=== PATIENT | female | born 1940 | race American Indian/Alaskan Native ===

== ENCOUNTER 2018-12-28 10:22 | Inpatient (IN) | payer OTHER ==
--- NOTE | 2018-12-28 12:10 | PDOC ---
History of Present Illness - General Chief Complaint: Rectal Bleed Stated Complaint: BLOOD IN THE STOOL Time Seen by Provider: 12/28/18 11:43 - History of Present Illness Initial Comments: 12/28/18 12:10 Ms. Hdz is a 78 yo female w/ pmh of HTN, HLD, hypothyroidism, rheumatoid arthritis, and polycythemia vera who presents for evaluation of 1 time history of blood in stool. She reports this occurred yesterday and was liquid blood without stool in it. She otherwise feels well and denies any other complaints however this worried her sufficiently to come in for evaluation. Last colonoscopy was approximately [address] Peoples and normal. The patient denies chest pain, shortness of breath, headache and dizziness. Denies fever, chills, nausea, vomit, diarrhea and constipation. Denies dysuria, frequency, urgency and hematuria. Past History - Past Medical History Allergies/Adverse Reactions: Allergies Allergy/AdvReac Type Severity Reaction Status Date / Time No Known Drug Allergies Allergy Verified 12/28/18 12:48 POLLEN Allergy Uncoded 12/28/18 10:29 RAGWEED Allergy Uncoded 12/28/18 10:29 Home Medications: Ambulatory Orders Amlodipine Besylate [Norvasc -] 10 mg PO DAILY 11/06/11 Aspirin, Enteric Coated [Ecotrin] 325 mg PO DAILY 11/06/11 Atorvastatin Ca [Lipitor] 10 mg PO HS 11/06/11 Caltrate 600 600 mg PO BID 11/06/11 Hydroxyurea [Hydrea 500Mg Capsule -] 1 mg PO UTDICT 11/06/11 Hydroxyurea [Hydrea 500Mg Capsule -] 2 mg PO UTDICT 11/06/11 Lisinopril [Zestril] 1 mg PO DAILY 11/06/11 Metformin HCl [Glucophage] 500 mg PO BID 11/06/11 Raloxifene HCl [Evista (Nf) -] 60 mg PO DAILY 11/06/11 Synthroid 75 mcg PO DAILY 11/06/11 Vitamin D 1,000 iu PO DAILY 11/06/11 Anemia: No Asthma: No Cancer: No Cardiac Disorders: No CVA: No COPD: No CHF: No Dementia: No Diabetes: Yes GI Disorders: No Disorders: No HTN: Yes Hypercholesterolemia: Yes Liver Disease: No Seizures: No Thyroid Disease: Yes (HYPOTHYROIDISM) - Surgical History Appendectomy: Yes Cholecystectomy: No Orthopedic Surgery: No - Immunization History Immunization Up to Date: Yes - Suicide/Smoking/Psychosocial Hx Smoking History: Never smoked Hx Alcohol Use: No Drug/Substance Use Hx: No Substance Use Type: None Hx Substance Use Treatment: No Review of Systems - Review of Systems Comments:: 12/28/18 12:14 GENERAL/CONSTITUTIONAL: No fever or chills. No weakness. HEAD, EYES, EARS, NOSE AND THROAT: No change in vision. No ear pain or discharge. No sore throat. CARDIOVASCULAR: No chest pain or shortness of breath RESPIRATORY: No cough, wheezing, or hemoptysis. GASTROINTESTINAL: +Blood per rectum as described. No nausea, vomiting, diarrhea or constipation. GENITOURINARY: No dysuria, frequency, or change in urination. MUSCULOSKELETAL: No joint or muscle swelling or pain. No neck or back pain. SKIN: No rash NEUROLOGIC: No headache, vertigo, loss of consciousness, or change in strength/ sensation. ENDOCRINE: No increased thirst. No abnormal weight change HEMATOLOGIC/LYMPHATIC: No anemia, easy bleeding, or history of blood clots. ALLERGIC/IMMUNOLOGIC: No hives or skin allergy. *Physical Exam - Vital Signs Last Vital Signs Temp Pulse Resp BP Pulse Ox 98.1 F 106 H 16 145/77 99 12/28/18 10:29 12/28/18 10:29 12/28/18 10:29 12/28/18 10:29 12/28/18 10:29 - Physical Exam Comments: 12/28/18 12:14 GENERAL: +Patient pale appearing. Awake, alert, and fully oriented, in no acute distress HEAD: No signs of trauma, normocephalic, atraumatic EYES: PERRLA, EOMI, sclera anicteric, conjunctiva clear ENT: Auricles normal inspection, hearing grossly normal, nares patent, oropharynx clear without exudates. Moist mucosa NECK: Normal ROM, supple, no lymphadenopathy, JVD, or masses LUNGS: No distress, speaks full sentences, clear to auscultation bilaterally HEART: Regular rate and rhythm, normal S1 and S2, no murmurs, rubs or gallops, peripheral pulses normal and equal bilaterally. ABDOMEN: Soft, nontender, normoactive bowel sounds. No guarding, no rebound. No masses EXTREMITIES: Normal inspection, Normal range of motion, no edema. No clubbing or cyanosis. NEUROLOGICAL: Cranial nerves II through XII grossly intact. Normal speech, normal gait, no focal sensorimotor deficits SKIN: Warm, Dry, normal turgor, no rashes or lesions noted. RECTAL: +Rosibel blood noted on glove. No pain, fissures, or hemorrhoids noted. Moderate Sedation - Procedure Monitoring Vital Signs: Procedure Monitoring Vital Signs Temperature 98.1 F 12/28/18 10:29 Pulse Rate 106 H 12/28/18 10:29 Respiratory Rate 16 12/28/18 10:29 Blood Pressure 145/77 12/28/18 10:29 O2 Sat by Pulse Oximetry (%) 99 12/28/18 10:29 ED Treatment Course - LABORATORY CBC & Chemistry Diagram: 12/28/18 12:50 12/28/18 12:50 Medical Decision Making - Medical Decision Making 12/28/18 12:49 Ms. Hdz is a 78 yo female w/ pmh as described who presents for evaluation of symptoms concerning for rectal bleed vs. hemorrhoid vs. GI bleed. Patient evaluation started accordingly. 12/28/18 13:47 Patient workup concerning for rosibel blood noted on glove. Labs concerning for positive SFOB as below. Will admit patient for further GI evaluation. Paging PCP for admission. 12/28/18 14:13 Patient admitted for further GI evaluation. Laboratory Results - last 24 hr 12/28/18 12/28/18 12/28/18 12:41 12:41 12:50 WBC 8.8 RBC 3.43 L Hgb 13.0 Hct 37.5 D MCV 109.3 H MCH 38.0 H D MCHC 34.8 RDW 18.3 H Plt Count 464 H MPV 7.6 Absolute Neuts (auto) 7.3 Neutrophils % 82.8 Lymphocytes % 7.5 L D Monocytes % 8.0 Eosinophils % 1.0 Basophils % 0.7 Nucleated RBC % 0 Retic Count Sodium Potassium Chloride Carbon Dioxide Anion Gap BUN Creatinine Creat Clearance w eGFR Random Glucose Calcium Total Bilirubin AST ALT Alkaline Phosphatase Total Protein Albumin Urine Color Yellow Urine Appearance Clear Urine pH 5.0 Ur Specific [place] 1.023 Urine Protein Negative Urine Glucose (UA) 3+ Urine Ketones Negative Urine Blood 2+ Urine Nitrite Negative Urine Bilirubin Negative Urine Urobilinogen 0.2 Ur Leukocyte Esterase Negative Urine WBC (Auto) 1 Urine RBC (Auto) 7 Urine Casts (Auto) 0 U Epithel Cells (Auto) 0.3 Urine Bacteria (Auto) 1.512 Stool Occult Blood Positive Blood Type Antibody Screen 12/28/18 12/28/18 12/28/18 12:50 12:50 12:50 WBC RBC Hgb Hct MCV MCH MCHC RDW Plt Count MPV Absolute Neuts (auto) Neutrophils % Lymphocytes % Monocytes % Eosinophils % Basophils % Nucleated RBC % Retic Count 1.93 H Sodium 138 Potassium 4.7 Chloride 106 Carbon Dioxide 27 Anion Gap 4 L BUN 20 H Creatinine 1.1 Creat Clearance w eGFR 47.91 Random Glucose 188 H Calcium 9.2 Total Bilirubin 0.6 AST 27 ALT 16 Alkaline Phosphatase 78 Total Protein 6.4 Albumin 3.3 L Urine Color Urine Appearance Urine pH Ur Specific [place] Urine Protein Urine Glucose (UA) Urine Ketones Urine Blood Urine Nitrite Urine Bilirubin Urine Urobilinogen Ur Leukocyte Esterase Urine WBC (Auto) Urine RBC (Auto) Urine Casts (Auto) U Epithel Cells (Auto) Urine Bacteria (Auto) Stool Occult Blood Blood Type A POSITIVE Antibody Screen Negative *DC/Admit/Observation/Transfer Diagnosis at time of Disposition: GI bleed Qualifiers: GI bleed type/associated pathology: unspecified gastrointestinal hemorrhage type Qualified Code(s): K92.2 - Gastrointestinal hemorrhage, unspecified - Discharge Dispostion Decision to Admit order: Yes - Referrals - Patient Instructions - Post Discharge Activity
[2018-12-28] MEDS ORDERED: SODIUM CHLORIDE 1,000 ML IV STA (12:46)
[2018-12-28] MEDS ORDERED: PANTOPRAZOLE SODIUM 40 MG VIAL IVPUSH ONE (12:46)
[2018-12-28 12:55] LABS: EPI CELLS 0.3 /HPF (0-5); URINE APPEARANCE CLEAR; URINE BACTERIA 1.512 /hpf (NEGATIVE); URINE BILIRUBIN NEGATIVE (<2.0 mg/dL); URINE CASTS 0 /hpf (0-8); URINE COLOR YELLOW; URINE GLUCOSE (UA) 3+ (NEGATIVE); URINE KETONE NEGATIVE (NEGATIVE); URINE LEUK ESTERASE NEGATIVE (NEGATIVE); URINE NITRITE NEGATIVE (NEGATIVE); URINE PROTEIN NEGATIVE (NEGATIVE); URINE RBC 7 /hpf (0-4); URINE UROBILINOGEN 0.2 mg/dL (0.2-1.0); URINE WBC 1 /hpf (0-5)
[2018-12-28 13:03] LABS: BASO % 0.7 % (0-2.0); HEMATOCRIT 37.5 % (32.4-45.2); LYMPH % 7.5 % (8-40); MCHC 34.8 g/dl (32.0-36.0); MEAN CELL VOLUME 109.3 fl (80-96); MEAN PLT VOLUME 7.6 fl (7.5-11.1); NEUT % 82.8 % (42.8-82.8); PLATELET COUNT 464 K/MM3 (134-434); RBC 3.43 M/mm3 (3.60-5.2); RDW 18.3 % (11.6-15.6); WHITE BLOOD COUNT 8.8 K/mm3 (4.0-10.0)
[2018-12-28] MEDS ORDERED: PANTOPRAZOLE SODIUM 40 MG VIAL ONE (13:18)
--- NOTE | 2018-12-28 13:19 | PDOC ---
Attending Attestation - Resident Resident Name: Enrrique Hayes - ED Attending Attestation I have performed the following: I have examined & evaluated the patient, The case was reviewed & discussed with the resident, I agree w/resident's findings & plan, Exceptions are as noted - Medical Decision Making 12/28/18 13:19 A portion of this note was documented by scribe services under my direction. I have reviewed the details of the note, within reason, and agree with the documentation with the following case summary and management plan written by me. Patient treated in the ED. Nursing notes are reviewed and incorporated into the medical decision-making. Vital signs reviewed. Peripheral IV access obtained by the nurse, laboratory studies are drawn and sent, reviewed and interpreted by myself. Vital Signs Temp Pulse Resp BP Pulse Ox 98.1 F 106 H 16 145/77 99 12/28/18 10:29 12/28/18 10:29 12/28/18 10:29 12/28/18 10:29 12/28/18 10:29 78-year-old female patient with history of hypertension, hyperlipidemia, hypothyroidism, rheumatoid arthritis, polycythemia vera presents with blood per rectum. Patient reported that she had an episode of straight blood per rectum. Denies abdominal pain, fevers, recent travels, back foods. Patient reports that she had a colonoscopy last year by Dr. Peoples which was reportedly negative. Given that the patient is having rectal bleeding, we will need to further investigate. Patient is on coronary disease with stent, at risk for further GI bleed. The patient should be admitted for further evaluation including possible colonoscopy. Consult GI. Admit. Transfuse when necessary if hemoglobin is less than 8. 12/28/18 13:47 CBC, BMP 12/28/18 12:50 12/28/18 12:50 CMP Sodium 138 mmol/L (136-145) 12/28/18 12:50 Potassium 4.7 mmol/L (3.5-5.1) 12/28/18 12:50 Chloride 106 mmol/L (98-107) 12/28/18 12:50 Carbon Dioxide 27 mmol/L (21-32) 12/28/18 12:50 Anion Gap 4 MMOL/L (8-16) L 12/28/18 12:50 BUN 20 mg/dL (7-18) H 12/28/18 12:50 Creatinine 1.1 mg/dL (0.55-1.3) 12/28/18 12:50 Creat Clearance w eGFR 47.91 (>60) 12/28/18 12:50 Random Glucose 188 mg/dL (74-106) H 12/28/18 12:50 Calcium 9.2 mg/dL (8.5-10.1) 12/28/18 12:50 Total Bilirubin 0.6 mg/dL (0.2-1) 12/28/18 12:50 AST 27 U/L (15-37) 12/28/18 12:50 ALT 16 U/L (13-61) 12/28/18 12:50 Alkaline Phosphatase 78 U/L (45-117) 12/28/18 12:50 Total Protein 6.4 g/dl (6.4-8.2) 12/28/18 12:50 Albumin 3.3 g/dl (3.4-5.0) L 12/28/18 12:50 Urine Test Results Urine Color Yellow 12/28/18 12:41 Urine Appearance Clear 12/28/18 12:41 Urine pH 5.0 (5.0-8.0) 12/28/18 12:41 Ur Specific [place] 1.023 (1.010-1.035) 12/28/18 12:41 Urine Protein Negative (NEGATIVE) 12/28/18 12:41 Urine Glucose (UA) 3+ (NEGATIVE) 12/28/18 12:41 Urine Ketones Negative (NEGATIVE) 12/28/18 12:41 Urine Blood 2+ (NEGATIVE) 12/28/18 12:41 Urine Nitrite Negative (NEGATIVE) 12/28/18 12:41 Urine Bilirubin Negative (<2.0 mg/dL) 12/28/18 12:41 Ur Leukocyte Esterase Negative (NEGATIVE) 12/28/18 12:41 <Dheeraj Jc - Last Filed: 12/28/18 13:47> - HPI HPI: 12/28/18 13:35 The patient is a 78-year-old female with a past medical history significant for CAD s/p Stent (on Plavix) RA, HTN, NIDDM, Hypothyroidism, HLD, and polycythemia vera presents to the emergency department with rectal bleeding. The patient presents after a single episode of rectal bleeding, liquid blood, denies diarrhea or stool. Denies abdominal pain. Denies fever, chills, chest pain, Shortness of breath, urinary symptoms. The patient reports her last colonoscopy was about a year ago, that was unremarkable with Dr. Peoples. Allergies: NKA Social history: Denies the use of tobacco, alcohol or drugs. Surgical history: Appendectomy. PCP: Dr. Christiano Mayo. - Physicial Exam PE: 12/28/18 13:35 GENERAL: Awake, alert, and fully oriented, in no acute distress HEAD: No signs of trauma EYES: PERRLA, EOMI, sclera anicteric, conjunctiva clear ENT: Auricles normal inspection, hearing grossly normal, nares patent. Moist mucosa NECK: Normal ROM, supple, no lymphadenopathy, JVD, or masses ABDOMEN: Soft, nontender. Rectal Exam as per ER resident. EXTREMITIES: Normal range of motion, no edema. No clubbing or cyanosis. No cords, erythema, or tenderness NEUROLOGICAL: Cranial nerves II through XII grossly intact. Normal speech. SKIN: Warm, Dry, normal turgor, no rashes or lesions noted. - Medical Decision Making 12/28/18 13:35 Documentation prepared by Sunitha Philippe, acting as medical representative for Dheeraj Jc MD. 12/28/18 13:50 Phone Call: Call placed to Dr. Mayo, spoke with the service, waiting for a call back from ANSHUL Bales. 12/28/18 14:01 Case discussed with ANSHUL Bales. <Sunitha Philippe - Last Filed: 12/28/18 15:01>
[2018-12-28 13:25] LABS: ALBUMIN 3.3 g/dl (3.4-5.0); ALK PHOS 78 U/L (45-117); ANION GAP 4 MMOL/L (8-16); BILIRUBIN,TOTAL 0.6 mg/dL (0.2-1); BLOOD UREA NITROGEN 20 mg/dL (7-18); CALCIUM 9.2 mg/dL (8.5-10.1); CHLORIDE 106 mmol/L (98-107); CO2 27 mmol/L (21-32); CREATININE 1.1 mg/dL (0.55-1.3); GLUCOSE,RANDOM 188 mg/dL (74-106); POTASSIUM 4.7 mmol/L (3.5-5.1); SGOT/AST 27 U/L (15-37); SGPT/ALT 16 U/L (13-61); SODIUM 138 mmol/L (136-145); TOT PROT 6.4 g/dl (6.4-8.2)
[2018-12-28 14:58] LABS: INR 1.11 (0.82-1.09); PROTHROMBIN TIME (PATIENT) 12.4 SEC (10.2-13.0)
[2018-12-28 15:38] LABS: ANISOCYTOSIS 1+; MACROCYTOSIS 1+; OVALOCYTE 1+; PLATELET ESTIMATE NORMAL
[2018-12-28 16:02] VITALS: BMI 22.2
[2018-12-28] MEDS ORDERED: SODIUM CHLORIDE 500 ML IV STA (16:13)
--- NOTE | 2018-12-28 16:28 | HP ---
Admitting History and Physical - Primary Care Physician PCP: Randee Mayo - Admission Chief Complaint: Rectal bleeding History of Present Illness: Patient is a 78 y/o female with past medical history of HTN, HLD, Hyypothyroidism, RA, Polycythemia Vera, DM, recent cardiac stent placement as per patient. Patient presented to ER after experiencing bloody diarrhea x 2 episodes this morning. Patient denied abdominal pain, dizziness, palpitations when bloody diarrhea began. In ER labs noted with Hg 13, BP 145/77, Stool OB positive. While on unit patient had episode of rectal bleeding with clots noted in bed bosch and with BP 70/35 and patient had near syncopal episode but no LOC as per RN. Received NS 500cc bolus STAT and BP increase to 114/55. On exam patient is alert and oriented, denies chest pain, palpitation, dizziness. History Source: Patient Limitations to Obtaining History: No Limitations - Past Medical History Cardiovascular: Yes: CAD (stent placement), HTN, Hyperlipdemia Gastrointestinal: Yes: GI Bleed, Other (rectal bleeding) ...: No Heme/Onc: Yes: Other (polycythemia vera) Rheumatology: Yes: Rheumatoid Arthritis Endocrine: Yes: Diabetes Mellitus, Hypothyroidism - Past Surgical History Past Surgical History: Yes: Colonoscopy - Smoking History Smoking history: Never smoked Have you smoked in the past 12 months: No - Alcohol/Substance Use Hx Alcohol Use: No - Social History Usual Living Arrangement: Yes: Alone ADL: Independent Home Medications - Allergies Allergies/Adverse Reactions: Allergies Allergy/AdvReac Type Severity Reaction Status Date / Time No Known Drug Allergies Allergy Verified 12/28/18 12:48 POLLEN Allergy Uncoded 12/28/18 10:29 RAGWEED Allergy Uncoded 12/28/18 10:29 - Home Medications Home Medications: Ambulatory Orders Amlodipine Besylate 10 mg PO DAILY 12/28/18 Ascorbate Calcium [Vitamin C] 500 mg PO DAILY 12/28/18 Aspirin 81 mg PO DAILY 12/28/18 Atorvastatin Calcium [Lipitor] 10 mg PO HS 12/28/18 Clopidogrel Bisulfate [Plavix] 75 mg PO DAILY 12/28/18 Dexlansoprazole [Dexilant] 60 mg PO DAILY 12/28/18 Empagliflozin [Jardiance] 25 mg PO DAILY 12/28/18 Folic Acid 1 mg PO DAILY 12/28/18 Glimepiride 1 mg PO 12/28/18 Hydroxyurea 500 mg PO DAILY 12/28/18 Levothyroxine [Synthroid -] 75 mcg PO DAILY 12/28/18 Losartan Potassium 25 mg PO DAILY 12/28/18 Lubiprostone [Amitiza] 8 mcg PO DAILY 12/28/18 Magnesium Oxide [Magnesium] 500 mg PO DAILY 12/28/18 Metformin HCl [Glucophage] 500 mg PO DAILY 12/28/18 Montelukast Sodium [Singulair] 10 mg PO DAILY 12/28/18 Prednisone 5 mg PO DAILY 12/28/18 Varicella-Zoster Ge Vac,2 of 2 [Shingrix Ge Antigen Component] 50 mcg IM ASDIR 12/28/18 Vitamin D - 1,000 units PO DAILY 12/28/18 Review of Systems - Review of Systems Constitutional: reports: No Symptoms Eyes: reports: No Symptoms HENT: reports: No Symptoms Neck: reports: No Symptoms Cardiovascular: reports: No Symptoms Respiratory: reports: No Symptoms Gastrointestinal: reports: Abdominal Pain, Rectal Bleeding Genitourinary: reports: No Symptoms Breasts: reports: No Symptoms Reported Musculoskeletal: reports: No Symptoms Integumentary: reports: No Symptoms Neurological: reports: No Symptoms Endocrine: reports: No Symptoms Hematology/Lymphatic: reports: No Symptoms Psychiatric: reports: No Symptoms Physical Examination Vital Signs: Vital Signs Temperature 98.0 F 12/28/18 14:34 Pulse Rate 74 12/28/18 14:34 Respiratory Rate 16 12/28/18 14:34 Blood Pressure 126/61 12/28/18 14:34 O2 Sat by Pulse Oximetry (%) 97 12/28/18 14:34 Constitutional: Yes: No Distress, Calm Eyes: Yes: Conjunctiva Clear HENT: Yes: Atraumatic Neck: Yes: Supple Cardiovascular: Yes: Regular Rate and Rhythm Respiratory: Yes: Regular, CTA Bilaterally Gastrointestinal: Yes: Normal Bowel Sounds, Soft, Tenderness (LLQ) ...Rectal Exam: Yes: Guaiac Positive Musculoskeletal: Yes: Muscle Weakness Extremities: Yes: WNL Edema: No Neurological: Yes: Alert, Oriented Psychiatric: Yes: Alert, Oriented Labs: CBC, BMP 12/28/18 12:50 12/28/18 12:50 Problem List - Problems (1) HLD (hyperlipidemia) Assessment/Plan: -continue lipitor Code(s): E78.5 - HYPERLIPIDEMIA, UNSPECIFIED (2) CAD (coronary artery disease) Assessment/Plan: -continue with ASA -hold plavix until stop actively bleeding Code(s): I25.10 - ATHSCL HEART DISEASE OF [place] CORONARY ARTERY W/O ANG PCTRS (3) Diabetes mellitus Assessment/Plan: -BGM ACHS -ISS -holding metformin for 2 days due to Abdomen CTA -HgA1c Code(s): E11.9 - TYPE 2 DIABETES MELLITUS WITHOUT COMPLICATIONS (4) GI bleed Assessment/Plan: -GI and Surgery consult placed -pending CTA of abdomen -pantoprazole BID -IV hydration -monitor Hg daily -ICU consult--due to actively bleeding -NPO Code(s): K92.2 - GASTROINTESTINAL HEMORRHAGE, UNSPECIFIED Qualifiers: GI bleed type/associated pathology: unspecified gastrointestinal hemorrhage type Qualified Code(s): K92.2 - Gastrointestinal hemorrhage, unspecified (5) Syncopal episodes Assessment/Plan: -cardiology consult -pending ICU consult Code(s): R55 - SYNCOPE AND COLLAPSE (6) Hypotension Assessment/Plan: -NS 500cc bolus -NS at 100cc/hr for maintainance -cardiology consult Code(s): I95.9 - HYPOTENSION, UNSPECIFIED Assessment/Plan see problem list dvt ppx
--- NOTE | 2018-12-28 16:30 | CON.GI ---
Consult Consult Specialty:: Gastroenterology ( covering Dr Peoples) Referred by:: Lynda Guan NP Reason for Consultation:: GI bleed - History of Present Illness Chief Complaint: Hematochezia x 4 episodes History of Present Illness: 78F developed rectal bleeding at 7AM and has had 4 episodes today. She has mild crampy lower abdominal pain. She had a near syncopal episode after the last the last episode when she became hypotensive to 70. She had a colonoscopy with Dr Peoples about a year ago which she believes was normal. She has been taking Plavix since a coronary stent was placed in 08/26 at [facility]. She denies ever having had an DE, CHF or previous GI bleeding. She is followed by Dr Lepe for polycythemia vera and has required phlebotomy only once. - History Source History Provided By: Patient Limitations to Obtaining History: No Limitations - Past Medical History Cardio/Vascular: Yes: CAD (coronary stenting 10/26), HTN, Hyperlipdemia Renal/: Yes: Renal Inusuff ...: No Endocrine: Yes: Diabetes Mellitus, Hypothyroidism - Past Surgical History Past Surgical History: Yes: Appendectomy, Breast Biopsy (bilateral for benign disease), Cataract Removal (bilateral ), Colonoscopy, Hysterectomy ( laparoscopic for fibroids) Additional Surgical History: Partial thyroidectomy for benign disease - Alcohol/Substance Use Hx Alcohol Use: Yes (social) - Smoking History Smoking history: Never smoked Have you smoked in the past 12 months: No - Social History Usual Living Arrangement: Alone ADL: Independent Occupation: electronics asembly Place of : Other ([place]) History of Recent Travel: No Home Medications - Allergies Allergies/Adverse Reactions: Allergies Allergy/AdvReac Type Severity Reaction Status Date / Time No Known Drug Allergies Allergy Verified 12/28/18 12:48 POLLEN Allergy Uncoded 12/28/18 10:29 RAGWEED Allergy Uncoded 12/28/18 10:29 - Home Medications Home Medications: Ambulatory Orders Amlodipine Besylate 10 mg PO DAILY 12/28/18 Ascorbate Calcium [Vitamin C] 500 mg PO DAILY 12/28/18 Aspirin 81 mg PO DAILY 12/28/18 Atorvastatin Calcium [Lipitor] 10 mg PO HS 12/28/18 Clopidogrel Bisulfate [Plavix] 75 mg PO DAILY 12/28/18 Dexlansoprazole [Dexilant] 60 mg PO DAILY 12/28/18 Empagliflozin [Jardiance] 25 mg PO DAILY 12/28/18 Folic Acid 1 mg PO DAILY 12/28/18 Glimepiride 1 mg PO 12/28/18 Hydroxyurea 500 mg PO DAILY 12/28/18 Levothyroxine [Synthroid -] 75 mcg PO DAILY 12/28/18 Losartan Potassium 25 mg PO DAILY 12/28/18 Lubiprostone [Amitiza] 8 mcg PO DAILY 12/28/18 Magnesium Oxide [Magnesium] 500 mg PO DAILY 12/28/18 Metformin HCl [Glucophage] 500 mg PO DAILY 12/28/18 Montelukast Sodium [Singulair] 10 mg PO DAILY 12/28/18 Prednisone 5 mg PO DAILY 12/28/18 Varicella-Zoster Ge Vac,2 of 2 [Shingrix Ge Antigen Component] 50 mcg IM ASDIR 12/28/18 Vitamin D - 1,000 units PO DAILY 12/28/18 Family Disease History - Family Disease History Family Disease History: Other: Father ( 55 of ulcer ) Review of Systems - Review of Systems Constitutional: reports: No Symptoms Eyes: reports: No Symptoms HENT: reports: No Symptoms Neck: reports: No Symptoms Cardiovascular: reports: No Symptoms Respiratory: reports: No Symptoms Gastrointestinal: reports: No Symptoms Neurological: reports: No Symptoms Physical Exam-GI Vital Signs: Vital Signs Temperature 98.0 F 12/28/18 14:34 Pulse Rate 74 12/28/18 14:34 Respiratory Rate 16 12/28/18 14:34 Blood Pressure 126/61 12/28/18 14:34 O2 Sat by Pulse Oximetry (%) 97 12/28/18 14:34 CBC,CMP WBC 8.8 K/mm3 (4.0-10.0) 12/28/18 12:50 RBC 3.43 M/mm3 (3.60-5.2) L 12/28/18 12:50 Hgb 13.0 GM/dL (10.7-15.3) 12/28/18 12:50 Hct 37.5 % (32.4-45.2) D 12/28/18 12:50 MCV 109.3 fl (80-96) H 12/28/18 12:50 MCH 38.0 pg (25.7-33.7) H D 12/28/18 12:50 MCHC 34.8 g/dl (32.0-36.0) 12/28/18 12:50 RDW 18.3 % (11.6-15.6) H 12/28/18 12:50 Plt Count 464 K/MM3 (134-434) H 12/28/18 12:50 MPV 7.6 fl (7.5-11.1) 12/28/18 12:50 Absolute Neuts (auto) 7.3 K/mm3 (1.5-8.0) 12/28/18 12:50 Neutrophils % 82.8 % (42.8-82.8) 12/28/18 12:50 Neutrophils % (Manual) 86.1 % (42.8-82.8) H 12/28/18 12:50 Band Neutrophils % 0.0 % 12/28/18 12:50 Lymphocytes % 7.5 % (8-40) L D 12/28/18 12:50 Lymphocytes % (Manual) 6.9 % (8-40) L 12/28/18 12:50 Monocytes % 8.0 % (3.8-10.2) 12/28/18 12:50 Monocytes % (Manual) 5 % (3.8-10.2) 12/28/18 12:50 Eosinophils % 1.0 % (0-4.5) 12/28/18 12:50 Eosinophils % (Manual) 1.0 % (0-4.5) 12/28/18 12:50 Basophils % 0.7 % (0-2.0) 12/28/18 12:50 Basophils % (Manual) 0.0 % (0-2.0) 12/28/18 12:50 Myelocytes % (Man) 0 % (0-2) 12/28/18 12:50 Promyelocytes % (Man) 0 % (0-2) 12/28/18 12:50 Blast Cells % (Manual) 0 % (0-0) 12/28/18 12:50 Nucleated RBC % 0 % (0-0) 12/28/18 12:50 Metamyelocytes 0 % (0-2) 12/28/18 12:50 Hypochromia 0 12/28/18 12:50 Platelet Estimate Normal 12/28/18 12:50 Polychromasia 1+ 12/28/18 12:50 Poikilocytosis 0 12/28/18 12:50 Anisocytosis 1+ 12/28/18 12:50 Macrocytosis 1+ 12/28/18 12:50 Ovalocytes 1+ 12/28/18 12:50 Retic Count 1.93 % (0.5-1.5) H 12/28/18 12:50 Sodium 138 mmol/L (136-145) 12/28/18 12:50 Potassium 4.7 mmol/L (3.5-5.1) 12/28/18 12:50 Chloride 106 mmol/L (98-107) 12/28/18 12:50 Carbon Dioxide 27 mmol/L (21-32) 12/28/18 12:50 Anion Gap 4 MMOL/L (8-16) L 12/28/18 12:50 BUN 20 mg/dL (7-18) H 12/28/18 12:50 Creatinine 1.1 mg/dL (0.55-1.3) 12/28/18 12:50 Creat Clearance w eGFR 47.91 (>60) 12/28/18 12:50 Random Glucose 188 mg/dL (74-106) H 12/28/18 12:50 Calcium 9.2 mg/dL (8.5-10.1) 12/28/18 12:50 Total Bilirubin 0.6 mg/dL (0.2-1) 12/28/18 12:50 AST 27 U/L (15-37) 12/28/18 12:50 ALT 16 U/L (13-61) 12/28/18 12:50 Alkaline Phosphatase 78 U/L (45-117) 12/28/18 12:50 Total Protein 6.4 g/dl (6.4-8.2) 12/28/18 12:50 Albumin 3.3 g/dl (3.4-5.0) L 12/28/18 12:50 Current Medications Generic Name Dose Route Start Last Admin Trade Name Freq PRN Reason Stop Dose Admin Sodium Chloride 500 mls @ 500 mls/hr 12/28/18 16:13 Normal Saline - IV 12/28/18 17:12 ASDIR STA Sodium Chloride 1,000 mls @ 100 mls/hr 12/28/18 16:15 Normal Saline - IV ASDIR MADELEINE Constitutional: Yes: Anxious Eyes: Yes: Conjunctiva Clear HENT: Yes: Atraumatic Neck: Yes: Supple, Other (healed thyroidecotmy incision) Cardiovascular: Yes: Tachycardia, S1 (WNL), S2 (WNL) Respiratory: Yes: CTA Bilaterally Gastrointestinal Inspection: Yes: Scars (vertical RLQ and laparoscopic incisions ) ...Auscultate: Yes: Hyperactive Bowel Sounds ...Palpate: Yes: Soft, Other (nontender) ...Percussion: Yes: Tympanitic ...Rectal Exam: Yes: Other (no masses, fresh blood) Edema: No Neurological: Yes: Alert, Oriented Labs: CBC, BMP 12/28/18 12:50 12/28/18 12:50 INR, PTT INR 1.11 (0.82-1.09) 12/28/18 12:50 Problem List - Problems (1) Rectal bleed Code(s): K62.5 - HEMORRHAGE OF ANUS AND RECTUM (2) Stented coronary artery Code(s): Z95.5 - PRESENCE OF CORONARY ANGIOPLASTY IMPLANT AND GRAFT (3) Diabetes mellitus Code(s): E11.9 - TYPE 2 DIABETES MELLITUS WITHOUT COMPLICATIONS (4) GI bleed Code(s): K92.2 - GASTROINTESTINAL HEMORRHAGE, UNSPECIFIED Qualifiers: GI bleed type/associated pathology: unspecified gastrointestinal hemorrhage type Qualified Code(s): K92.2 - Gastrointestinal hemorrhage, unspecified (5) HLD (hyperlipidemia) Code(s): E78.5 - HYPERLIPIDEMIA, UNSPECIFIED (6) HTN (hypertension) Code(s): I10 - ESSENTIAL (PRIMARY) HYPERTENSION Assessment/Plan Impression Lower GI hemorrhage: potential etiologies include a diverticular hemorrhage, ischemic colitis or bleeding from vascular ectasias. A bleeding stercoral ulcer , hemorrhoids and neoplasm are less likely. Recent coronary stenting on Plavix Plan: Transfer to ICU CTA ordered Surgical consultation advised - discussed with Lynda Guan NP Serial CBCs Hold Plavix but continue aspirin. If bleeding subsides will resume Dr Peoples will return 12/30
--- NOTE | 2018-12-28 17:04 | EKG ---
Test Reason : Blood Pressure : / mmHG Vent. Rate : 073 BPM Atrial Rate : 073 BPM P-R Int : 150 ms QRS Dur : 084 ms QT Int : 392 ms P-R-T Axes : 030 -53 042 degrees QTc Int : 431 ms NORMAL SINUS RHYTHM LEFT AXIS DEVIATION SEPTAL INFARCT (CITED ON OR BEFORE 29-SEP-2003) ABNORMAL ECG WHEN COMPARED WITH ECG OF 06-NOV-2011 14:35, NONSPECIFIC T WAVE ABNORMALITY NOW EVIDENT IN LATERAL LEADS Confirmed by LARS DAVIS MD ([id number]) on 12/28/2018 5:04:15 PM Referred By: KEENAN Confirmed By:LARS DAVIS MD
[2018-12-28 19:12] LABS: HEMATOCRIT 27.8 % (32.4-45.2); HEMOGLOBIN 9.5 GM/dL (10.7-15.3); MCH 37.7 pg (25.7-33.7); MCHC 34.2 g/dl (32.0-36.0); MEAN CELL VOLUME 110.4 fl (80-96); MEAN PLT VOLUME 7.2 fl (7.5-11.1); PLATELET COUNT 369 K/MM3 (134-434); RBC 2.52 M/mm3 (3.60-5.2); RDW 18.5 % (11.6-15.6); WHITE BLOOD COUNT 5.7 K/mm3 (4.0-10.0)
[2018-12-28] MEDS: SODIUM CHLORIDE 1,000 ML IV SCH (20:28)
[2018-12-28] MEDS ORDERED: MONTELUKAST NA 5 MG TAB.CHEW PO SCH (22:00)
[2018-12-28] MEDS ORDERED: MONTELUKAST NA 10 MG TABLET PO SCH (22:45)
[2018-12-28] MEDS: PANTOPRAZOLE SODIUM 40 MG VIAL IVPUSH SCH (22:52)
[2018-12-28] MEDS: ATORVASTATIN CA 10 MG TABLET (FP) PO SCH (22:53)
[2018-12-28] MEDS: MONTELUKAST NA 10 MG TABLET PO SCH (23:05)
[2018-12-29] MEDS: LEVOTHYROXINE NA 75 MCG TABLET (FP) PO SCH (06:26)
[2018-12-29] MEDS: SODIUM CHLORIDE 1,000 ML IV SCH ×2 (07:02→19:30)
[2018-12-29 07:52] LABS: EOS % 1.3 % (0-4.5); HEMATOCRIT 25.4 % (32.4-45.2); HEMOGLOBIN 8.7 GM/dL (10.7-15.3); LYMPH % 13.6 % (8-40); MCH 37.7 pg (25.7-33.7); MCHC 34.2 g/dl (32.0-36.0); MEAN CELL VOLUME 110.3 fl (80-96); MEAN PLT VOLUME 6.9 fl (7.5-11.1); MONO % 8.3 % (3.8-10.2); NEUT % 75.8 % (42.8-82.8); PLATELET COUNT 367 K/MM3 (134-434); RDW 18.7 % (11.6-15.6); WHITE BLOOD COUNT 6.9 K/mm3 (4.0-10.0)
[2018-12-29 08:24] LABS: ALBUMIN 2.5 g/dl (3.4-5.0); ALK PHOS 57 U/L (45-117); ANION GAP 10 MMOL/L (8-16); BILIRUBIN,TOTAL 0.4 mg/dL (0.2-1); BLOOD UREA NITROGEN 18 mg/dL (7-18); CALCIUM 7.9 mg/dL (8.5-10.1); CHLORIDE 113 mmol/L (98-107); CO2 20 mmol/L (21-32); CREATININE 1.1 mg/dL (0.55-1.3); GLUCOSE,RANDOM 71 mg/dL (74-106); MAGNESIUM 1.8 mg/dL (1.8-2.4); PHOSPHOROUS 4.1 mg/dL (2.5-4.9); POTASSIUM 3.9 mmol/L (3.5-5.1); SGOT/AST 11 U/L (15-37); SGPT/ALT 9 U/L (13-61); SODIUM 144 mmol/L (136-145); TOT PROT 4.9 g/dl (6.4-8.2)
[2018-12-29 08:32] LABS: INR 1.05 (0.83-1.09); PROTHROMBIN TIME (PATIENT) 12.4 SEC (9.7-13.0)
--- NOTE | 2018-12-29 08:41 | PN ---
Progress Note, Physician Chief Complaint: GI bleeding Hypotension History of Present Illness: Previous notes and events reviewed awake and alert NAD denies rectal bleeding during the night Hg 8.7 denies chest pain, palpitations or dizziness, abdominal pain BP holding on IV fluids, latest BP 100/58 - Current Medication List Current Medications: Active Medications Amlodipine Besylate (Norvasc -) 10 mg PO DAILY [facility] Aspirin (Ecotrin -) 81 mg PO DAILY [facility] Atorvastatin Calcium (Lipitor -) 10 mg PO HS [facility] Last Admin: 12/28/18 22:53 Dose: 10 mg Cholecalciferol (Vitamin D3 -) 1,000 unit PO DAILY [facility] Folic Acid (Folic Acid -) 1 mg PO DAILY [facility] Hydroxyurea (Hydrea -) 500 mg PO DAILY [facility] Sodium Chloride (Normal Saline -) 1,000 mls @ 100 mls/hr IV ASDIR [facility] Last Admin: 12/29/18 07:02 Dose: 100 mls/hr Levothyroxine Sodium (Synthroid -) 75 mcg PO DAILY@0700 [facility] Last Admin: 12/29/18 06:26 Dose: 75 mcg Losartan Potassium (Cozaar -) 25 mg PO DAILY [facility] Montelukast Sodium (Singulair -) 10 mg PO HS [facility] Last Admin: 12/28/18 23:05 Dose: 10 mg Pantoprazole Sodium (Protonix Iv) 40 mg IVPUSH BID [facility] Last Admin: 12/28/18 22:52 Dose: 40 mg Prednisone (Deltasone -) 5 mg PO DAILY [facility] - Objective Vital Signs: Vital Signs Temperature 98.6 F 12/29/18 06:00 Pulse Rate 68 12/29/18 06:00 Respiratory Rate 18 12/29/18 06:00 Blood Pressure 100/58 L 12/29/18 06:00 O2 Sat by Pulse Oximetry (%) 97 12/28/18 14:34 Constitutional: Yes: No Distress, Calm Eyes: Yes: Conjunctiva Clear HENT: Yes: Atraumatic Cardiovascular: Yes: Regular Rate and Rhythm Respiratory: Yes: Regular, CTA Bilaterally Gastrointestinal: Yes: Normal Bowel Sounds, Soft, Other (non tender) Musculoskeletal: Yes: Muscle Weakness Extremities: Yes: WNL Edema: No Neurological: Yes: Alert, Oriented Psychiatric: Yes: Alert, Oriented Labs: CBC, BMP 12/29/18 06:40 INR, PTT INR 1.05 (0.83-1.09) 12/29/18 06:40 Problem List - Problems (1) HLD (hyperlipidemia) Assessment/Plan: -continue lipitor Code(s): E78.5 - HYPERLIPIDEMIA, UNSPECIFIED (2) CAD (coronary artery disease) Assessment/Plan: -continue with ASA -hold plavix until stop actively bleeding Code(s): I25.10 - ATHSCL HEART DISEASE OF [place] CORONARY ARTERY W/O ANG PCTRS (3) Diabetes mellitus Assessment/Plan: -BGM ACHS -ISS -holding metformin for 2 days due to Abdomen CTA -HgA1c Code(s): E11.9 - TYPE 2 DIABETES MELLITUS WITHOUT COMPLICATIONS (4) GI bleed Assessment/Plan: -GI on board -Surgery consult placed -pending CTA of abdomen results -pantoprazole BID -IV hydration -Hg 8.7 -monitor Hg daily -ICU consult -NPO Code(s): K92.2 - GASTROINTESTINAL HEMORRHAGE, UNSPECIFIED Qualifiers: GI bleed type/associated pathology: unspecified gastrointestinal hemorrhage type Qualified Code(s): K92.2 - Gastrointestinal hemorrhage, unspecified (5) Syncopal episodes Assessment/Plan: -cardiology consult Code(s): R55 - SYNCOPE AND COLLAPSE (6) Hypotension Assessment/Plan: -NS at 100cc/hr for maintainance -hold BP meds if SBP <110 and/or DBP <70 -cardiology consult Code(s): I95.9 - HYPOTENSION, UNSPECIFIED Assessment/Plan see problem list dvt ppx
[2018-12-29] MEDS: amLODIPine BESYLATE 10 MG TABLET (FP) PO SCH (09:45)
[2018-12-29] MEDS: CHOLECALCIFEROL (VITAMIN D3) 1,000 UNIT TABLET (FP) PO SCH (09:45)
[2018-12-29] MEDS: FOLIC ACID 1 MG TABLET (FP) PO SCH (09:45)
[2018-12-29] MEDS: predniSONE 5 MG TABLET (UD) PO SCH (09:45)
[2018-12-29] MEDS: LOSARTAN POTASSIUM 25 MG TABLET PO SCH (09:46)
[2018-12-29] MEDS: PANTOPRAZOLE SODIUM 40 MG VIAL IVPUSH SCH ×2 (09:47→21:45)
[2018-12-29] MEDS ORDERED: PT OWN MED DRAWER 7, Y5N ONE ×2 (09:54→13:54)
[2018-12-29] MEDS ORDERED: ASPIRIN COATED 81 MG TABLET.EC PO SCH (10:00)
--- NOTE | 2018-12-29 11:39 | CON.CARD ---
Consult Consult Specialty:: Cardiology Referred by:: Randee Mayo Reason for Consultation:: H/o stents - History of Present Illness Chief Complaint: rectal bleeding History of Present Illness: Ms. Hdz is a 78 year old with a pmhx of htn, hld, hypothyroidism, rheumatoid arthritis, polycythemia vera, and CAD s/p cath 09/19/18 with 50% mLAD and 99% D1 lesion s/p stent to D1 who presents with blood in the stool. No chest pain, sob, or palpitations. No pnd, orthopnea, or edema. Near syncope with episode of low bp in the hospital after episode of rectal bleeding. EKG: sinus rhythm, septal infarct, no acute st changes Hgb dropped from 13 to 8s - History Source History Provided By: Patient, Family Member, Medical Record - Past Medical History Cardio/Vascular: Yes: CAD (coronary stenting 10/26), HTN, Hyperlipdemia Gastrointestinal: Yes: GI Bleed, Other (rectal bleeding) Renal/: Yes: Renal Inusuff ...: No Rheumatology: Yes: Rheumatoid Arthritis Endocrine: Yes: Diabetes Mellitus, Hypothyroidism - Past Surgical History Past Surgical History: Yes: Appendectomy, Breast Biopsy (bilateral for benign disease), Cataract Removal (bilateral ), Colonoscopy, Hysterectomy ( laparoscopic for fibroids) Additional Surgical History: Partial thyroidectomy for benign disease - Alcohol/Substance Use Hx Alcohol Use: Yes (social) - Smoking History Smoking history: Never smoked Have you smoked in the past 12 months: No - Social History Usual Living Arrangement: Alone ADL: Independent Occupation: electronics asembly History of Recent Travel: No Home Medications - Allergies Allergies/Adverse Reactions: Allergies Allergy/AdvReac Type Severity Reaction Status Date / Time No Known Drug Allergies Allergy Verified 12/28/18 12:48 POLLEN Allergy Uncoded 12/28/18 10:29 RAGWEED Allergy Uncoded 12/28/18 10:29 - Home Medications Home Medications: Ambulatory Orders Amlodipine Besylate 10 mg PO DAILY 12/28/18 Ascorbate Calcium [Vitamin C] 500 mg PO DAILY 12/28/18 Aspirin 81 mg PO DAILY 12/28/18 Atorvastatin Calcium [Lipitor] 10 mg PO HS 12/28/18 Clopidogrel Bisulfate [Plavix] 75 mg PO DAILY 12/28/18 Dexlansoprazole [Dexilant] 60 mg PO DAILY 12/28/18 Empagliflozin [Jardiance] 25 mg PO DAILY 12/28/18 Folic Acid 1 mg PO DAILY 12/28/18 Glimepiride 1 mg PO 12/28/18 Hydroxyurea 500 mg PO DAILY 12/28/18 Levothyroxine [Synthroid -] 75 mcg PO DAILY 12/28/18 Losartan Potassium 25 mg PO DAILY 12/28/18 Lubiprostone [Amitiza] 8 mcg PO DAILY 12/28/18 Magnesium Oxide [Magnesium] 500 mg PO DAILY 12/28/18 Metformin HCl [Glucophage] 500 mg PO DAILY 12/28/18 Montelukast Sodium [Singulair] 10 mg PO DAILY 12/28/18 Prednisone 5 mg PO DAILY 12/28/18 Varicella-Zoster Ge Vac,2 of 2 [Shingrix Ge Antigen Component] 50 mcg IM ASDIR 12/28/18 Vitamin D - 1,000 units PO DAILY 12/28/18 Family Disease History - Family Disease History Family Disease History: Other: Father ( 55 of ulcer ) Vital Signs: Vital Signs Temperature 98.6 F 12/29/18 06:00 Pulse Rate 68 12/29/18 06:00 Respiratory Rate 18 12/29/18 06:00 Blood Pressure 100/58 L 12/29/18 06:00 O2 Sat by Pulse Oximetry (%) 97 12/28/18 14:34 Constitutional: Yes: No Distress Neck: Yes: Supple Respiratory: Yes: CTA Bilaterally Gastrointestinal: Yes: Soft Cardiovascular: Yes: Regular Rate and Rhythm JVD: No Carotid Bruit: No PMI: Non-Displaced Heart Sounds: Yes: S1, S2 Murmur: No: Systolic Murmur Edema: No - Other Data Labs, Other Data: CBC, BMP 12/29/18 06:40 12/29/18 06:40 INR, PTT INR 1.05 (0.83-1.09) 12/29/18 06:40 Imaging - Results EKG: Image Reviewed Problem List - Problems (1) CAD (coronary artery disease) Code(s): I25.10 - ATHSCL HEART DISEASE OF [place] CORONARY ARTERY W/O ANG PCTRS (2) GI bleed Code(s): K92.2 - GASTROINTESTINAL HEMORRHAGE, UNSPECIFIED Qualifiers: GI bleed type/associated pathology: unspecified gastrointestinal hemorrhage type Qualified Code(s): K92.2 - Gastrointestinal hemorrhage, unspecified Assessment/Plan Ms. Hdz is a 78 year old with a pmhx of htn, hld, hypothyroidism, rheumatoid arthritis, polycythemia vera, and CAD s/p cath 09/19/18 with 50% mLAD and 99% D1 lesion s/p stent to D1 who presents with blood in the stool. No chest pain, sob, or palpitations. No pnd, orthopnea, or edema. Near syncope with episode of low bp in the hospital after episode of rectal bleeding. EKG: sinus rhythm, septal infarct, no acute st changes Hgb dropped from 13 to 8s 1) CAD -stent to D1 on 09/19/18 Given GI bleed with drop in h/h would hold plavix. Continue aspirin 81mg daily. BP medication on hold (amlodipine). No chest pain or sob. No ischemic changes on ekg. -Fluids and transfuse as deemed necessary by primary team. -F/u GI recommendations for GI bleed.
--- NOTE | 2018-12-29 11:47 | PN.GI ---
GI Progress Note Subjective: GI NOte: NO bleeding overnight. Hb 8.7. Cramps have subsided. CTA is negative for bleed. Renal function stable - Objective Vital Signs: Vital Signs Temperature 98.6 F 12/29/18 06:00 Pulse Rate 68 12/29/18 06:00 Respiratory Rate 18 12/29/18 06:00 Blood Pressure 100/58 L 12/29/18 06:00 O2 Sat by Pulse Oximetry (%) 97 12/28/18 14:34 Laboratory Tests 12/28/18 12/28/18 12/29/18 12:50 18:15 06:40 Hgb 13.0 9.5 L 8.7 L Constitutional: Calm Eyes: Yes: Conjunctiva Clear HENT: Yes: Normocephalic Neck: Yes: Supple ...Auscultate: Yes: Normoactive Bowel Sounds ...Palpate: Yes: Soft, Other (nontender) Labs: CBC, BMP 12/29/18 06:40 12/29/18 06:40 INR, PTT INR 1.05 (0.83-1.09) 12/29/18 06:40 Assessment/Plan Impression Lower GI hemorrhage resolving: potential etiologies include a diverticular hemorrhage, ischemic colitis or bleeding from vascular ectasias. A bleeding stercoral ulcer, hemorrhoids and neoplasm are less likely. Recent coronary stenting on Plavix Plan Serial CBCs Hold Plavix but continue aspirin. If bleeding does not recur by tomorrow will resume Plavix Dr Peoples will return 12/30 Discussed situation with daughter Problem List - Problems (1) Rectal bleed Code(s): K62.5 - HEMORRHAGE OF ANUS AND RECTUM (2) Stented coronary artery Code(s): Z95.5 - PRESENCE OF CORONARY ANGIOPLASTY IMPLANT AND GRAFT (3) Diabetes mellitus Code(s): E11.9 - TYPE 2 DIABETES MELLITUS WITHOUT COMPLICATIONS (4) GI bleed Code(s): K92.2 - GASTROINTESTINAL HEMORRHAGE, UNSPECIFIED Qualifiers: GI bleed type/associated pathology: unspecified gastrointestinal hemorrhage type Qualified Code(s): K92.2 - Gastrointestinal hemorrhage, unspecified (5) HLD (hyperlipidemia) Code(s): E78.5 - HYPERLIPIDEMIA, UNSPECIFIED (6) HTN (hypertension) Code(s): I10 - ESSENTIAL (PRIMARY) HYPERTENSION
[2018-12-29] MEDS: HYDROXYUREA 500 MG CAPSULE PO SCH (13:55)
[2018-12-29] MEDS: ATORVASTATIN CA 10 MG TABLET (FP) PO SCH (21:45)
[2018-12-29] MEDS: MONTELUKAST NA 10 MG TABLET PO SCH (21:45)
[2018-12-30] MEDS: LEVOTHYROXINE NA 75 MCG TABLET (FP) PO SCH (06:05)
[2018-12-30] MEDS: SODIUM CHLORIDE 1,000 ML IV SCH ×3 (06:07→18:19)
--- NOTE | 2018-12-30 07:47 | PN.GI ---
GI Progress Note - Objective Vital Signs: Vital Signs Temperature 98.7 F 12/29/18 22:00 Pulse Rate 62 12/30/18 06:00 Respiratory Rate 18 12/30/18 06:00 Blood Pressure 112/52 L 12/30/18 06:00 O2 Sat by Pulse Oximetry (%) 97 12/28/18 14:34 Labs: CBC, BMP 12/30/18 07:10 12/30/18 07:10 INR, PTT INR 1.05 (0.83-1.09) 12/29/18 06:40 <Lynda Guan - Last Filed: 12/30/18 09:15> Subjective: Patient states feeling better. No reports of rectal bleeding during the night. Last Hg 8.7, pending Hg results from this mornings CBC. She is tolerating clear liquid diet. Patient states she has a weight loss of 14lbs since last visit with her renal doctor a few weeks ago. Currently denies abdominal pain, diarrhea, melena. Patient has near syncopal episode in the ER. Today asymptomatic - Objective Vital Signs: Vital Signs Temperature 98.7 F 12/29/18 22:00 Pulse Rate 62 12/30/18 06:00 Respiratory Rate 18 12/30/18 06:00 Blood Pressure 112/52 L 12/30/18 06:00 O2 Sat by Pulse Oximetry (%) 97 12/28/18 14:34 Constitutional: No Distress, Calm Eyes: Yes: Conjunctiva Clear Cardiovascular: Yes: Regular Rate and Rhythm Respiratory: Yes: Regular, CTA Bilaterally Gastrointestinal Inspection: Yes: WNL. No: Ascites, Distention, Hernia, Scars, Other ...Auscultate: Yes: Normoactive Bowel Sounds. No: Hyperactive Bowel Sounds, Hypoactive Bowel Sounds, No Bowel Sounds, Other ...Palpate: Yes: Soft. No: Firm/Rigid, Guarding, Hepatomegaly, Mass, Pulsatile Mass, Splenomegaly, Tenderness, Tenderness, Epigastium, Tenderness, Rebound, Other ...Percussion: Yes: Other (high tympany). No: Dullness, Fluid Wave, Tympanitic Neurological: Yes: Alert, Oriented Psychiatric: Yes: Alert Labs: CBC, BMP 12/29/18 06:40 12/29/18 06:40 INR, PTT INR 1.05 (0.83-1.09) 12/29/18 06:40 Active Medications Generic Name Dose Route Start Last Admin Trade Name Elva PRN Reason Stop Dose Admin Amlodipine Besylate 10 mg 12/29/18 10:00 12/29/18 09:45 Norvasc - PO 10 mg DAILY MADELEINE Administration Aspirin 81 mg 12/29/18 10:00 12/29/18 09:45 Ecotrin - PO 81 mg DAILY MADELEINE Administration Atorvastatin Calcium 10 mg 12/28/18 22:00 12/29/18 21:45 Lipitor - PO 10 mg HS MADELEINE Administration Cholecalciferol 1,000 unit 12/29/18 10:00 12/29/18 09:45 Vitamin D3 - PO 1,000 unit DAILY MADELEINE Administration Folic Acid 1 mg 12/29/18 10:00 12/29/18 09:45 Folic Acid - PO 1 mg DAILY MADELEINE Administration Hydroxyurea 500 mg 12/29/18 10:00 12/29/18 13:55 Hydrea - PO 500 mg DAILY MADELEINE Administration Sodium Chloride 1,000 mls @ 100 mls/hr 12/28/18 16:15 12/30/18 06:07 Normal Saline - IV 100 mls/hr ASDIR MADELEINE Administration Levothyroxine Sodium 75 mcg 12/29/18 07:00 12/30/18 06:05 Synthroid - PO 75 mcg DAILY@0700 MADELEINE Administration Losartan Potassium 25 mg 12/29/18 10:00 12/29/18 09:46 Cozaar - PO Not Given DAILY MADELEINE Montelukast Sodium 10 mg 12/28/18 23:00 12/29/18 21:45 Singulair - PO 10 mg HS MADELEINE Administration Pantoprazole Sodium 40 mg 12/28/18 22:00 12/29/18 21:45 Protonix Iv IVPUSH 40 mg BID MADELEINE Administration Prednisone 5 mg 12/29/18 10:00 12/29/18 09:45 Deltasone - PO 5 mg DAILY MADE[facility] Administration <Ted Peoples - Last Filed: 12/30/18 18:51> Problem List - Problems (1) HLD (hyperlipidemia) Code(s): E78.5 - HYPERLIPIDEMIA, UNSPECIFIED (2) CAD (coronary artery disease) Code(s): I25.10 - ATHSCL HEART DISEASE OF [place] CORONARY ARTERY W/O ANG PCTRS (3) Diabetes mellitus Code(s): E11.9 - TYPE 2 DIABETES MELLITUS WITHOUT COMPLICATIONS (4) GI bleed Code(s): K92.2 - GASTROINTESTINAL HEMORRHAGE, UNSPECIFIED Qualifiers: GI bleed type/associated pathology: unspecified gastrointestinal hemorrhage type Qualified Code(s): K92.2 - Gastrointestinal hemorrhage, unspecified (5) Syncopal episodes Code(s): R55 - SYNCOPE AND COLLAPSE (6) Hypotension Code(s): I95.9 - HYPOTENSION, UNSPECIFIED <Lynda Guan - Last Filed: 12/30/18 09:15> - Problems (1) GI bleed Assessment/Plan: most likely seicndary to diverticula bleeding R>continue pantoprazole >serial CBC to monitor Hg >type and screen stat >will hold on PRBC transfusion due to Hg 9.6 >aspirin held, will resume plavix >Colonoscopy in 2013 shows extrinsic compression in the cecum, redundant sigmoid , diverticula scattered in the left colom, ulcaerated and deformed ICV with biopsy showing colonic mucosa with focal erosion and mild active cryptitis >continue IV hyrdation >continue clear liquids > advance diet in am Ferrrous sulfate 325 mg tid Code(s): K92.2 - GASTROINTESTINAL HEMORRHAGE, UNSPECIFIED Qualifiers: GI bleed type/associated pathology: unspecified gastrointestinal hemorrhage type Qualified Code(s): K92.2 - Gastrointestinal hemorrhage, unspecified (2) Unintentional weight loss Assessment/Plan: >AFP, CEA, CA 19-9, CA 125 Code(s): R63.4 - ABNORMAL WEIGHT LOSS <Ted Peoples - Last Filed: 12/30/18 18:51>
[2018-12-30 08:23] LABS: BASO % 1.3 % (0-2.0); EOS % 2.9 % (0-4.5); HEMATOCRIT 27.2 % (32.4-45.2); HEMOGLOBIN 9.6 GM/dL (10.7-15.3); MCHC 35.2 g/dl (32.0-36.0); MEAN CELL VOLUME 110.9 fl (80-96); MEAN PLT VOLUME 6.9 fl (7.5-11.1); MONO % 7.9 % (3.8-10.2); NEUT % 76.9 % (42.8-82.8); PLATELET COUNT 422 K/MM3 (134-434); RBC 2.46 M/mm3 (3.60-5.2); RDW 18.3 % (11.6-15.6); RETICULOCYTES 2.69 % (0.5-1.5); WHITE BLOOD COUNT 7.3 K/mm3 (4.0-10.0)
[2018-12-30 08:57] LABS: ALBUMIN 2.8 g/dl (3.4-5.0); ALK PHOS 63 U/L (45-117); ANION GAP 6 MMOL/L (8-16); BILIRUBIN,TOTAL 0.4 mg/dL (0.2-1); BLOOD UREA NITROGEN 15 mg/dL (7-18); CALCIUM 8.7 mg/dL (8.5-10.1); CHLORIDE 110 mmol/L (98-107); CO2 24 mmol/L (21-32); CREATININE 1.1 mg/dL (0.55-1.3); GLUCOSE,RANDOM 130 mg/dL (74-106); SGOT/AST 12 U/L (15-37); SGPT/ALT 10 U/L (13-61); SODIUM 141 mmol/L (136-145); TOT PROT 5.4 g/dl (6.4-8.2)
--- NOTE | 2018-12-30 09:28 | CONSULT ---
Consult Consult Specialty:: Surgery - History of Present Illness Chief Complaint: rectal bleeding History of Present Illness: 78 y.o. female admitted for several episodes of rectal bleeding. Denies similar episodes before. Had PCI in 08/25 where patient was placed on ASA and Plavix. Denies abdominal pain and has had no LGIB for > 24 hours. - History Source History Provided By: Patient Limitations to Obtaining History: No Limitations - Past Medical History Cardio/Vascular: Yes: CAD (coronary stenting 10/26), HTN, Hyperlipdemia Gastrointestinal: Yes: GI Bleed, Other (rectal bleeding) Renal/: Yes: Renal Inusuff ...: No Rheumatology: Yes: Rheumatoid Arthritis Endocrine: Yes: Diabetes Mellitus, Hypothyroidism - Past Surgical History Past Surgical History: Yes: Appendectomy, Breast Biopsy (bilateral for benign disease), Cataract Removal (bilateral ), Colonoscopy, Hysterectomy ( laparoscopic for fibroids) Additional Surgical History: Partial thyroidectomy for benign disease - Alcohol/Substance Use Hx Alcohol Use: Yes (social) - Smoking History Smoking history: Never smoked Have you smoked in the past 12 months: No - Social History Usual Living Arrangement: Alone ADL: Independent Occupation: electronics asembly History of Recent Travel: No Home Medications - Allergies Allergies/Adverse Reactions: Allergies Allergy/AdvReac Type Severity Reaction Status Date / Time No Known Drug Allergies Allergy Verified 12/28/18 12:48 POLLEN Allergy Uncoded 12/28/18 10:29 RAGWEED Allergy Uncoded 12/28/18 10:29 - Home Medications Home Medications: Ambulatory Orders Amlodipine Besylate 10 mg PO DAILY 12/28/18 Ascorbate Calcium [Vitamin C] 500 mg PO DAILY 12/28/18 Aspirin 81 mg PO DAILY 12/28/18 Atorvastatin Calcium [Lipitor] 10 mg PO HS 12/28/18 Clopidogrel Bisulfate [Plavix] 75 mg PO DAILY 12/28/18 Dexlansoprazole [Dexilant] 60 mg PO DAILY 12/28/18 Empagliflozin [Jardiance] 25 mg PO DAILY 12/28/18 Folic Acid 1 mg PO DAILY 12/28/18 Glimepiride 1 mg PO 12/28/18 Hydroxyurea 500 mg PO DAILY 12/28/18 Levothyroxine [Synthroid -] 75 mcg PO DAILY 12/28/18 Losartan Potassium 25 mg PO DAILY 12/28/18 Lubiprostone [Amitiza] 8 mcg PO DAILY 12/28/18 Magnesium Oxide [Magnesium] 500 mg PO DAILY 12/28/18 Metformin HCl [Glucophage] 500 mg PO DAILY 12/28/18 Montelukast Sodium [Singulair] 10 mg PO DAILY 12/28/18 Prednisone 5 mg PO DAILY 12/28/18 Varicella-Zoster Ge Vac,2 of 2 [Shingrix Ge Antigen Component] 50 mcg IM ASDIR 12/28/18 Vitamin D - 1,000 units PO DAILY 12/28/18 Family Disease History - Family Disease History Family Disease History: Other: Father ( 55 of ulcer ) Review of Systems - Review of Systems Constitutional: reports: No Symptoms Physical Exam Vital Signs: Vital Signs Temperature 98.7 F 12/29/18 22:00 Pulse Rate 62 12/30/18 06:00 Respiratory Rate 18 12/30/18 06:00 Blood Pressure 112/52 L 12/30/18 06:00 O2 Sat by Pulse Oximetry (%) 97 12/28/18 14:34 Constitutional: Yes: Well Nourished, No Distress HENT: Yes: Normocephalic Neck: Yes: Supple Cardiovascular: Yes: Gallop Respiratory: Yes: CTA Bilaterally Gastrointestinal: Yes: Normal Bowel Sounds, Soft, Tenderness (negative) ...Rectal Exam: Yes: Deferred Labs: CBC, BMP 12/30/18 07:10 12/30/18 07:10 Imaging - Results Cat Scan: Image Reviewed Assessment/Plan LGIB likely secondary to diverticulosis, on ASA and Clopidogrel No clinical and lab evidence of ongoing LGIB F/U Cardiology recommendations If massive LGIB recurs, may need IR for possible embolization No surgical intervention necessary at this time
[2018-12-30] MEDS: LOSARTAN POTASSIUM 25 MG TABLET PO SCH (10:25)
[2018-12-30] MEDS: predniSONE 5 MG TABLET (UD) PO SCH (10:25)
[2018-12-30] MEDS: FOLIC ACID 1 MG TABLET (FP) PO SCH (10:25)
[2018-12-30] MEDS: CHOLECALCIFEROL (VITAMIN D3) 1,000 UNIT TABLET (FP) PO SCH (10:26)
[2018-12-30] MEDS: HYDROXYUREA 500 MG CAPSULE PO SCH (10:26)
[2018-12-30] MEDS: PANTOPRAZOLE SODIUM 40 MG VIAL IVPUSH SCH ×2 (10:26→21:25)
[2018-12-30] MEDS: CLOPIDOGREL BISULFATE 75 MG TABLET (FP) PO SCH (10:26)
[2018-12-30] MEDS: amLODIPine BESYLATE 10 MG TABLET (FP) PO SCH (10:26)
[2018-12-30] MEDS ORDERED: PT OWN MED DRAWER 7, Y5N ONE (10:44)
[2018-12-30 10:51] LABS: ANISOCYTOSIS 1+; MACROCYTOSIS 1+; OVALOCYTE 1+; PLATELET ESTIMATE NORMAL
--- NOTE | 2018-12-30 15:09 | PN ---
Progress Note, Physician - Current Medication List Current Medications: Active Medications Amlodipine Besylate (Norvasc -) 10 mg PO DAILY [facility] Last Admin: 12/30/18 10:26 Dose: 10 mg Atorvastatin Calcium (Lipitor -) 10 mg PO HS [facility] Last Admin: 12/29/18 21:45 Dose: 10 mg Cholecalciferol (Vitamin D3 -) 1,000 unit PO DAILY [facility] Last Admin: 12/30/18 10:26 Dose: 1,000 unit Clopidogrel Bisulfate (Plavix -) 75 mg PO DAILY [facility] Last Admin: 12/30/18 10:26 Dose: 75 mg Folic Acid (Folic Acid -) 1 mg PO DAILY [facility] Last Admin: 12/30/18 10:25 Dose: 1 mg Hydroxyurea (Hydrea -) 500 mg PO DAILY [facility] Last Admin: 12/30/18 10:26 Dose: 500 mg Sodium Chloride (Normal Saline -) 1,000 mls @ 100 mls/hr IV ASDIR [facility] Last Admin: 12/30/18 14:26 Dose: 100 mls/hr Levothyroxine Sodium (Synthroid -) 75 mcg PO DAILY@0700 [facility] Last Admin: 12/30/18 06:05 Dose: 75 mcg Losartan Potassium (Cozaar -) 25 mg PO DAILY [facility] Last Admin: 12/30/18 10:25 Dose: 25 mg Montelukast Sodium (Singulair -) 10 mg PO HS [facility] Last Admin: 12/29/18 21:45 Dose: 10 mg Pantoprazole Sodium (Protonix Iv) 40 mg IVPUSH BID [facility] Last Admin: 12/30/18 10:26 Dose: 40 mg Prednisone (Deltasone -) 5 mg PO DAILY [facility] Last Admin: 12/30/18 10:25 Dose: 5 mg - Objective Vital Signs: Vital Signs Temperature 97.7 F 12/30/18 08:40 Pulse Rate 64 12/30/18 08:40 Respiratory Rate 18 12/30/18 08:40 Blood Pressure 135/63 12/30/18 08:40 O2 Sat by Pulse Oximetry (%) 97 12/28/18 14:34 Labs: CBC, BMP 12/30/18 07:10 12/30/18 07:10 INR, PTT INR 1.05 (0.83-1.09) 12/29/18 06:40
--- NOTE | 2018-12-30 16:39 | PN ---
Progress Note, Physician Chief Complaint: The patient appears comfortable at the time of exam. he reports no chest pain, shortness, palpitation or dizziness. History of Present Illness: 78 year old woman with a PMHx of HTN, HLD, hypothyroidism, rheumatoid arthritis , polycythemia vera, and CAD s/p cath 09/19/18 with 50% mLAD and 99% D1 lesion s /p stent to D1 who admitted with GI bleeding and anemia. No symptoms of angina or CHF. Near syncope with episode of low bp in the hospital after episode of rectal bleeding. EKG: sinus rhythm, septal infarct, no acute st changes Hgb dropped from 13 to 8s - Current Medication List Current Medications: Active Medications Amlodipine Besylate (Norvasc -) 10 mg PO DAILY [facility] Last Admin: 12/30/18 10:26 Dose: 10 mg Atorvastatin Calcium (Lipitor -) 10 mg PO HS [facility] Last Admin: 12/29/18 21:45 Dose: 10 mg Cholecalciferol (Vitamin D3 -) 1,000 unit PO DAILY [facility] Last Admin: 12/30/18 10:26 Dose: 1,000 unit Clopidogrel Bisulfate (Plavix -) 75 mg PO DAILY [facility] Last Admin: 12/30/18 10:26 Dose: 75 mg Folic Acid (Folic Acid -) 1 mg PO DAILY [facility] Last Admin: 12/30/18 10:25 Dose: 1 mg Hydroxyurea (Hydrea -) 500 mg PO DAILY [facility] Last Admin: 12/30/18 10:26 Dose: 500 mg Sodium Chloride (Normal Saline -) 1,000 mls @ 100 mls/hr IV ASDIR [facility] Last Admin: 12/30/18 14:26 Dose: 100 mls/hr Levothyroxine Sodium (Synthroid -) 75 mcg PO DAILY@0700 [facility] Last Admin: 12/30/18 06:05 Dose: 75 mcg Losartan Potassium (Cozaar -) 25 mg PO DAILY [facility] Last Admin: 12/30/18 10:25 Dose: 25 mg Montelukast Sodium (Singulair -) 10 mg PO HS [facility] Last Admin: 12/29/18 21:45 Dose: 10 mg Pantoprazole Sodium (Protonix Iv) 40 mg IVPUSH BID [facility] Last Admin: 12/30/18 10:26 Dose: 40 mg Prednisone (Deltasone -) 5 mg PO DAILY [facility] Last Admin: 12/30/18 10:25 Dose: 5 mg - Objective Vital Signs: Vital Signs Temperature 98.1 F 12/30/18 15:15 Pulse Rate 63 12/30/18 15:15 Respiratory Rate 18 12/30/18 15:15 Blood Pressure 112/56 L 12/30/18 15:15 O2 Sat by Pulse Oximetry (%) 97 12/28/18 14:34 General: Well developed. Chronic ill and pale. No acute distress. Head: Normocephalic. Atraumatic, Eyes: PERRLA, EOMI. Sclerae anicteric. Conjunctivae clear. Neck: Supple. No JVD. No bruits. Heart: Normal S1, S2: Regular rhythm and rate. No murmur. No gallop or rub. Lungs: Symmetrical air entry. Clear to auscultation. No crackles. No wheezing or rhonchi. Abdomen: Soft. Bowel sound positive. Non tender. No masses. Extremities: No edema. No clubbing or cyanosis. PD 2+, equal bilaterally. Neuro: Intact, no focal findings. AAO X3. Labs: CBC, BMP 12/30/18 07:10 12/30/18 07:10 INR, PTT INR 1.05 (0.83-1.09) 12/29/18 06:40 Assessment/Plan 78 year old woman with a PMHx of HTN, HLD, hypothyroidism, rheumatoid arthritis , polycythemia vera, and CAD s/p cath 09/19/18 with 50% mLAD and 99% D1 lesion s /p stent to D1 who admitted with GI bleeding and anemia. No symptoms of angina or CHF. Near syncope with episode of low bp in the hospital after episode of rectal bleeding. EKG: sinus rhythm, septal infarct, no acute st changes Hgb dropped from 13 to 8s. Seen by GI. No recurrent GI bleeding. H+H stable now. 1) CAD -stent to D1 on 09/19/18: No chest pain or sob. No ischemic changes on ekg. Would resume aspirin and plavix due to recent PCI with OPHELIA to D1. May hold amlodipine. Continue atorvastatin. Monitor H+H closely and follow GI recommendations for GI bleed. Please call us for reconsult as needed.
[2018-12-30] MEDS: FERROUS GLUCONATE 324 MG TAB (FP) PO SCH (19:54)
[2018-12-30] MEDS: ATORVASTATIN CA 10 MG TABLET (FP) PO SCH (21:25)
[2018-12-30] MEDS: MONTELUKAST NA 10 MG TABLET PO SCH (21:25)
[2018-12-31] MEDS: SODIUM CHLORIDE 1,000 ML IV SCH ×4 (00:36→20:43)
[2018-12-31 04:12] LABS: SERUM IRON SATURATION 13 % (15-55); TOTAL IRON BINDING CAPACITY 211 ug/dL (250-450); UIBC 184 ug/dL (118-369)
[2018-12-31 05:14] LABS: CARCINOEMBRYONIC ANTIGEN 2.5 ng/mL (0.0-4.7)
[2018-12-31] MEDS: LEVOTHYROXINE NA 75 MCG TABLET (FP) PO SCH (06:06)
--- NOTE | 2018-12-31 07:35 | PN.GI ---
GI Progress Note Subjective: Patient states feeling better. No reports of rectal bleeding and currently stable Hg 9.6, pending this morning latest result. Abdomen CTA shows no definite bleeding site and very nurmerous non-specific splenic nodules. Complains of indigestion and consitpation. Denies rectal bleeding, nausea, vomiting, abdominal pain. - Objective Vital Signs: Vital Signs Temperature 98.7 F 12/31/18 06:14 Pulse Rate 58 L 12/31/18 06:14 Respiratory Rate 20 12/31/18 06:14 Blood Pressure 118/55 L 12/31/18 06:14 O2 Sat by Pulse Oximetry (%) 97 12/28/18 14:34 Constitutional: No Distress, Calm Eyes: Yes: Conjunctiva Clear HENT: Yes: Atraumatic Cardiovascular: Yes: Regular Rate and Rhythm Respiratory: Yes: Regular, CTA Bilaterally Gastrointestinal Inspection: Yes: WNL. No: Ascites, Distention, Hernia, Scars, Other ...Auscultate: Yes: Normoactive Bowel Sounds. No: Hyperactive Bowel Sounds, Hypoactive Bowel Sounds, No Bowel Sounds, Other ...Palpate: Yes: Soft, Tenderness (LLQ). No: Firm/Rigid, Guarding, Hepatomegaly , Mass, Pulsatile Mass, Splenomegaly, Tenderness, Epigastium, Tenderness, Rebound, Other ...Percussion: Yes: Other (high tympany). No: Dullness, Fluid Wave, Tympanitic Neurological: Yes: Alert, Oriented Psychiatric: Yes: Alert, Oriented Labs: CBC, BMP 12/30/18 07:10 12/30/18 07:10 INR, PTT INR 1.05 (0.83-1.09) 12/29/18 06:40 Active Medications Generic Name Dose Route Start Last Admin Trade Name Freq PRN Reason Stop Dose Admin Amlodipine Besylate 10 mg 12/29/18 10:00 12/30/18 10:26 Norvasc - PO 10 mg DAILY [facility] Administration Atorvastatin Calcium 10 mg 12/28/18 22:00 12/30/18 21:25 Lipitor - PO 10 mg HS [facility] Administration Cholecalciferol 1,000 unit 12/29/18 10:00 12/30/18 10:26 Vitamin D3 - PO 1,000 unit DAILY [facility] Administration Clopidogrel Bisulfate 75 mg 12/30/18 10:00 12/30/18 10:26 Plavix - PO 75 mg DAILY [facility] Administration Ferrous Gluconate 324 mg 12/30/18 19:00 12/30/18 19:54 Fergon - PO 324 mg TIDCM [facility] Administration Folic Acid 1 mg 12/29/18 10:00 12/30/18 10:25 Folic Acid - PO 1 mg DAILY [facility] Administration Hydroxyurea 500 mg 12/29/18 10:00 12/30/18 10:26 Hydrea - PO 500 mg DAILY [facility] Administration Sodium Chloride 1,000 mls @ 100 mls/hr 12/28/18 16:15 12/31/18 00:36 Normal Saline - IV 100 mls/hr ASDIR [facility] Administration Levothyroxine Sodium 75 mcg 12/29/18 07:00 12/31/18 06:06 Synthroid - PO 75 mcg DAILY@0700 [facility] Administration Losartan Potassium 25 mg 12/29/18 10:00 12/30/18 10:25 Cozaar - PO 25 mg DAILY [facility] Administration Montelukast Sodium 10 mg 12/28/18 23:00 12/30/18 21:25 Singulair - PO 10 mg HS [facility] Administration Pantoprazole Sodium 40 mg 12/28/18 22:00 12/30/18 21:25 Protonix Iv IVPUSH 40 mg BID [facility] Administration Prednisone 5 mg 12/29/18 10:00 12/30/18 10:25 Deltasone - PO 5 mg DAILY [facility] Administration Problem List - Problems (1) GI bleed Assessment/Plan: most likely seicndary to diverticula bleeding R>continue pantoprazole >serial CBC to monitor Hg >aspirin held, will resume plavix >Colonoscopy in 2013 shows extrinsic compression in the cecum, redundant sigmoid , diverticula scattered in the left colom, ulcaerated and deformed ICV with biopsy showing colonic mucosa with focal erosion and mild active cryptitis >continue IV hyrdation >continue clear liquids Ferrrous sulfate 325 mg tid Code(s): K92.2 - GASTROINTESTINAL HEMORRHAGE, UNSPECIFIED Qualifiers: GI bleed type/associated pathology: unspecified gastrointestinal hemorrhage type Qualified Code(s): K92.2 - Gastrointestinal hemorrhage, unspecified (2) Unintentional weight loss Assessment/Plan: >tumor markers negative Code(s): R63.4 - ABNORMAL WEIGHT LOSS (3) Nodule of spleen Code(s): D73.9 - DISEASE OF SPLEEN, UNSPECIFIED
[2018-12-31] MEDS ORDERED: PT OWN MED DRAWER 7, Y5N ONE (09:59)
[2018-12-31] MEDS: FOLIC ACID 1 MG TABLET (FP) PO SCH (10:14)
[2018-12-31] MEDS: PANTOPRAZOLE SODIUM 40 MG VIAL IVPUSH SCH ×2 (10:14→22:00)
[2018-12-31] MEDS: FERROUS GLUCONATE 324 MG TAB (FP) PO SCH ×3 (10:14→17:34)
[2018-12-31] MEDS: CLOPIDOGREL BISULFATE 75 MG TABLET (FP) PO SCH (10:14)
[2018-12-31] MEDS: HYDROXYUREA 500 MG CAPSULE PO SCH (10:14)
[2018-12-31] MEDS: CHOLECALCIFEROL (VITAMIN D3) 1,000 UNIT TABLET (FP) PO SCH (10:14)
[2018-12-31] MEDS: amLODIPine BESYLATE 10 MG TABLET (FP) PO SCH (10:14)
[2018-12-31] MEDS: LOSARTAN POTASSIUM 25 MG TABLET PO SCH (10:14)
[2018-12-31] MEDS: predniSONE 5 MG TABLET (UD) PO SCH (10:14)
--- NOTE | 2018-12-31 15:35 | PN ---
Progress Note, Physician Chief Complaint: GI bleeding Hypotension History of Present Illness: Previous notes and events reviewed awake and alert NAD denies rectal bleeding Hg 9.6 denies chest pain, palpitations or dizziness, abdominal pain - Current Medication List Current Medications: Active Medications Amlodipine Besylate (Norvasc -) 10 mg PO DAILY [facility] Last Admin: 12/31/18 10:14 Dose: 10 mg Atorvastatin Calcium (Lipitor -) 10 mg PO HS [facility] Last Admin: 12/30/18 21:25 Dose: 10 mg Cholecalciferol (Vitamin D3 -) 1,000 unit PO DAILY [facility] Last Admin: 12/31/18 10:14 Dose: 1,000 unit Clopidogrel Bisulfate (Plavix -) 75 mg PO DAILY [facility] Last Admin: 12/31/18 10:14 Dose: 75 mg Ferrous Gluconate (Fergon -) 324 mg PO TIDCM [facility] Last Admin: 12/31/18 12:29 Dose: 324 mg Folic Acid (Folic Acid -) 1 mg PO DAILY [facility] Last Admin: 12/31/18 10:14 Dose: 1 mg Hydroxyurea (Hydrea -) 500 mg PO DAILY [facility] Last Admin: 12/31/18 10:14 Dose: 500 mg Sodium Chloride (Normal Saline -) 1,000 mls @ 100 mls/hr IV ASDIR [facility] Last Admin: 12/31/18 10:15 Dose: 100 mls/hr Levothyroxine Sodium (Synthroid -) 75 mcg PO DAILY@0700 [facility] Last Admin: 12/31/18 06:06 Dose: 75 mcg Losartan Potassium (Cozaar -) 25 mg PO DAILY [facility] Last Admin: 12/31/18 10:14 Dose: 25 mg Montelukast Sodium (Singulair -) 10 mg PO HS [facility] Last Admin: 12/30/18 21:25 Dose: 10 mg Pantoprazole Sodium (Protonix Iv) 40 mg IVPUSH BID [facility] Last Admin: 12/31/18 10:14 Dose: 40 mg Prednisone (Deltasone -) 5 mg PO DAILY [facility] Last Admin: 12/31/18 10:14 Dose: 5 mg - Objective Vital Signs: Vital Signs Temperature 98.5 F 12/31/18 14:57 Pulse Rate 74 12/31/18 14:57 Respiratory Rate 18 12/31/18 14:57 Blood Pressure 130/66 12/31/18 14:57 O2 Sat by Pulse Oximetry (%) 97 12/28/18 14:34 Constitutional: Yes: No Distress, Calm Eyes: Yes: Conjunctiva Clear HENT: Yes: Atraumatic Cardiovascular: Yes: Regular Rate and Rhythm Respiratory: Yes: Regular, CTA Bilaterally Gastrointestinal: Yes: Normal Bowel Sounds, Soft, Other (non tender) Musculoskeletal: Yes: Muscle Weakness Extremities: Yes: WNL Edema: No Peripheral Pulses WNL: Yes Neurological: Yes: Alert, Oriented Psychiatric: Yes: Alert, Oriented Labs: CBC, BMP 12/30/18 07:10 12/30/18 07:10 INR, PTT INR 1.05 (0.83-1.09) 12/29/18 06:40 Microbiology 12/28/18 12:41 Urine - Urine Clean Catch Urine Culture - Final Problem List - Problems (1) HLD (hyperlipidemia) Assessment/Plan: -continue lipitor Code(s): E78.5 - HYPERLIPIDEMIA, UNSPECIFIED (2) CAD (coronary artery disease) Assessment/Plan: -plavix resumed -cardiology recommend resuming ASA, will resume in AM Code(s): I25.10 - ATHSCL HEART DISEASE OF [place] CORONARY ARTERY W/O ANG PCTRS (3) Diabetes mellitus Assessment/Plan: -BGM ACHS -ISS -holding metformin for 2 days due to Abdomen CTA -HgA1c Code(s): E11.9 - TYPE 2 DIABETES MELLITUS WITHOUT COMPLICATIONS (4) GI bleed Assessment/Plan: -GI on board -Surgery on board and recommend if massive LGIB occur consult IR for embolization -Abdomen CTA shows no definite bleeding site can be identified, numerous non specific splenic nodules -pantoprazole BID -IV hydration -Hg 9.6 -monitor Hg daily Code(s): K92.2 - GASTROINTESTINAL HEMORRHAGE, UNSPECIFIED Qualifiers: GI bleed type/associated pathology: unspecified gastrointestinal hemorrhage type Qualified Code(s): K92.2 - Gastrointestinal hemorrhage, unspecified (5) Syncopal episodes Assessment/Plan: -cardiology consult Code(s): R55 - SYNCOPE AND COLLAPSE (6) Hypotension Assessment/Plan: -NS at 100cc/hr for maintainance -hold BP meds if SBP <110 and/or DBP <70 -cardiology consult Code(s): I95.9 - HYPOTENSION, UNSPECIFIED (7) Nodule of spleen Assessment/Plan: -hematology consult Code(s): D73.9 - DISEASE OF SPLEEN, UNSPECIFIED
[2018-12-31] MEDS: MONTELUKAST NA 10 MG TABLET PO SCH (22:00)
[2018-12-31] MEDS: ATORVASTATIN CA 10 MG TABLET (FP) PO SCH (22:00)
[2019-01-01] MEDS: LEVOTHYROXINE NA 75 MCG TABLET (FP) PO SCH (06:20)
--- NOTE | 2019-01-01 07:46 | PN.GI ---
GI Progress Note Subjective: Patient denies further episodes of rectal bleeding, pending this morning Hg result. Last noted Hg 9.6. Complains of constipation. Denies abdominal pain, nausea, vomiting. - Objective Vital Signs: Vital Signs Temperature 98.9 F 01/01/19 06:00 Pulse Rate 63 01/01/19 06:00 Respiratory Rate 18 01/01/19 06:00 Blood Pressure 124/64 01/01/19 06:00 O2 Sat by Pulse Oximetry (%) 97 12/28/18 14:34 Constitutional: No Distress, Calm Eyes: Yes: Conjunctiva Clear HENT: Yes: Atraumatic Cardiovascular: Yes: Regular Rate and Rhythm Respiratory: Yes: Regular, CTA Bilaterally Gastrointestinal Inspection: Yes: WNL. No: Ascites, Distention, Hernia, Scars, Other ...Auscultate: Yes: Normoactive Bowel Sounds. No: Hyperactive Bowel Sounds, Hypoactive Bowel Sounds, No Bowel Sounds, Other ...Palpate: Yes: Soft. No: Firm/Rigid, Guarding, Hepatomegaly, Mass, Pulsatile Mass, Splenomegaly, Tenderness, Tenderness, Epigastium, Tenderness, Rebound, Other ...Percussion: Yes: Tympanitic. No: Dullness, Fluid Wave, Other Neurological: Yes: Alert, Oriented Psychiatric: Yes: Alert, Oriented Labs: INR, PTT INR 1.05 (0.83-1.09) 12/29/18 06:40 Active Medications Generic Name Dose Route Start Last Admin Trade Name Freq PRN Reason Stop Dose Admin Amlodipine Besylate 10 mg 12/29/18 10:00 12/31/18 10:14 Norvasc - PO 10 mg DAILY [facility] Administration Aspirin 81 mg 01/01/19 10:00 Ecotrin - PO DAILY [facility] Atorvastatin Calcium 10 mg 12/28/18 22:00 12/31/18 22:00 Lipitor - PO 10 mg HS [facility] Administration Cholecalciferol 1,000 unit 12/29/18 10:00 12/31/18 10:14 Vitamin D3 - PO 1,000 unit DAILY [facility] Administration Clopidogrel Bisulfate 75 mg 12/30/18 10:00 12/31/18 10:14 Plavix - PO 75 mg DAILY [facility] Administration Ferrous Gluconate 324 mg 12/30/18 19:00 12/31/18 17:34 Fergon - PO 324 mg TIDCM [facility] Administration Folic Acid 1 mg 12/29/18 10:00 12/31/18 10:14 Folic Acid - PO 1 mg DAILY [facility] Administration Hydroxyurea 500 mg 12/29/18 10:00 12/31/18 10:14 Hydrea - PO 500 mg DAILY [facility] Administration Sodium Chloride 1,000 mls @ 100 mls/hr 12/28/18 16:15 12/31/18 20:43 Normal Saline - IV Not Given ASDIR [facility] Levothyroxine Sodium 75 mcg 12/29/18 07:00 01/01/19 06:20 Synthroid - PO 75 mcg DAILY@0700 [facility] Administration Losartan Potassium 25 mg 12/29/18 10:00 12/31/18 10:14 Cozaar - PO 25 mg DAILY [facility] Administration Montelukast Sodium 10 mg 12/28/18 23:00 12/31/18 22:00 Singulair - PO 10 mg HS [facility] Administration Pantoprazole Sodium 40 mg 12/28/18 22:00 12/31/18 22:00 Protonix Iv IVPUSH 40 mg BID [facility] Administration Prednisone 5 mg 12/29/18 10:00 12/31/18 10:14 Deltasone - PO 5 mg DAILY [facility] Administration Problem List - Problems (1) GI bleed Assessment/Plan: most likely seconndary to diverticula bleeding R>continue pantoprazole >serial CBC to monitor Hg >aspirin started as per cardiology recommendation, continue plavix >Colonoscopy in 2013 shows extrinsic compression in the cecum, redundant sigmoid , diverticula scattered in the left colom, ulcaerated and deformed ICV with biopsy showing colonic mucosa with focal erosion and mild active cryptitis >continue IV hyrdation Ferrrous sulfate 325 mg tid Code(s): K92.2 - GASTROINTESTINAL HEMORRHAGE, UNSPECIFIED Qualifiers: GI bleed type/associated pathology: unspecified gastrointestinal hemorrhage type Qualified Code(s): K92.2 - Gastrointestinal hemorrhage, unspecified (2) Unintentional weight loss Assessment/Plan: >tumor markers negative Code(s): R63.4 - ABNORMAL WEIGHT LOSS (3) Nodule of spleen Assessment/Plan: >hematology consult placed Code(s): D73.9 - DISEASE OF SPLEEN, UNSPECIFIED (4) Constipation Assessment/Plan: >will start on miralax daily Code(s): K59.00 - CONSTIPATION, UNSPECIFIED
[2019-01-01 08:07] LABS: HEMOGLOBIN 8.8 GM/dL (10.7-15.3); MCH 38.7 pg (25.7-33.7); MCHC 35.4 g/dl (32.0-36.0); MEAN CELL VOLUME 109.4 fl (80-96); PLATELET COUNT 392 K/MM3 (134-434); RBC 2.28 M/mm3 (3.60-5.2); RDW 17.8 % (11.6-15.6); WHITE BLOOD COUNT 6.9 K/mm3 (4.0-10.0)
[2019-01-01 08:17] LABS: ALBUMIN 2.6 g/dl (3.4-5.0); ALK PHOS 62 U/L (45-117); ANION GAP 3 MMOL/L (8-16); BILIRUBIN,TOTAL 0.2 mg/dL (0.2-1); BLOOD UREA NITROGEN 9 mg/dL (7-18); CALCIUM 8.5 mg/dL (8.5-10.1); CHLORIDE 113 mmol/L (98-107); CO2 28 mmol/L (21-32); CREATININE 1.1 mg/dL (0.55-1.3); GLUCOSE,RANDOM 156 mg/dL (74-106); POTASSIUM 3.6 mmol/L (3.5-5.1); SGOT/AST 9 U/L (15-37); SGPT/ALT 11 U/L (13-61); SODIUM 144 mmol/L (136-145); TOT PROT 5.2 g/dl (6.4-8.2)
[2019-01-01] MEDS: FERROUS GLUCONATE 324 MG TAB (FP) PO SCH ×3 (08:21→17:22)
--- NOTE | 2019-01-01 09:03 | PN ---
Progress Note, Physician Chief Complaint: GI bleeding Hypotension History of Present Illness: Previous notes and events reviewed awake and alert NAD denies rectal bleeding Hg drop from 9.6 to 8.8 denies chest pain, palpitations or dizziness, abdominal pain - Current Medication List Current Medications: Active Medications Amlodipine Besylate (Norvasc -) 10 mg PO DAILY [facility] Last Admin: 12/31/18 10:14 Dose: 10 mg Aspirin (Ecotrin -) 81 mg PO DAILY [facility] Atorvastatin Calcium (Lipitor -) 10 mg PO HS [facility] Last Admin: 12/31/18 22:00 Dose: 10 mg Cholecalciferol (Vitamin D3 -) 1,000 unit PO DAILY [facility] Last Admin: 12/31/18 10:14 Dose: 1,000 unit Clopidogrel Bisulfate (Plavix -) 75 mg PO DAILY [facility] Last Admin: 12/31/18 10:14 Dose: 75 mg Ferrous Gluconate (Fergon -) 324 mg PO TIDCM [facility] Last Admin: 01/01/19 08:21 Dose: 324 mg Folic Acid (Folic Acid -) 1 mg PO DAILY [facility] Last Admin: 12/31/18 10:14 Dose: 1 mg Hydroxyurea (Hydrea -) 500 mg PO DAILY [facility] Last Admin: 12/31/18 10:14 Dose: 500 mg Levothyroxine Sodium (Synthroid -) 75 mcg PO DAILY@0700 [facility] Last Admin: 01/01/19 06:20 Dose: 75 mcg Losartan Potassium (Cozaar -) 25 mg PO DAILY [facility] Last Admin: 12/31/18 10:14 Dose: 25 mg Montelukast Sodium (Singulair -) 10 mg PO [facility] Last Admin: 12/31/18 22:00 Dose: 10 mg Pantoprazole Sodium (Protonix -) 40 mg PO DAILY [facility] Polyethylene Glycol (Miralax (For Daily Use) -) 17 gm PO DAILY [facility] Prednisone (Deltasone -) 5 mg PO DAILY [facility] Last Admin: 12/31/18 10:14 Dose: 5 mg - Objective Vital Signs: Vital Signs Temperature 98.9 F 01/01/19 06:00 Pulse Rate 63 01/01/19 06:00 Respiratory Rate 18 01/01/19 06:00 Blood Pressure 124/64 01/01/19 06:00 O2 Sat by Pulse Oximetry (%) 97 12/28/18 14:34 Constitutional: Yes: No Distress, Calm Eyes: Yes: Conjunctiva Clear HENT: Yes: Atraumatic Cardiovascular: Yes: Regular Rate and Rhythm Respiratory: Yes: Regular, CTA Bilaterally Gastrointestinal: Yes: Normal Bowel Sounds, Soft Musculoskeletal: Yes: WNL Extremities: Yes: WNL Edema: No Neurological: Yes: Alert, Oriented Psychiatric: Yes: Alert, Oriented Labs: CBC, BMP 01/01/19 07:25 01/01/19 07:25 INR, PTT INR 1.05 (0.83-1.09) 12/29/18 06:40 Problem List - Problems (1) HLD (hyperlipidemia) Assessment/Plan: -continue lipitor Code(s): E78.5 - HYPERLIPIDEMIA, UNSPECIFIED (2) CAD (coronary artery disease) Assessment/Plan: -plavix resumed -cardiology recommend resuming ASA, will resume in AM Code(s): I25.10 - ATHSCL HEART DISEASE OF [place]UG[place] CORONARY ARTERY W/O ANG PCTRS (3) Diabetes mellitus Assessment/Plan: -BGM ACHS -ISS -started back on Metformin 500mg daily Code(s): E11.9 - TYPE 2 DIABETES MELLITUS WITHOUT COMPLICATIONS (4) GI bleed Assessment/Plan: -GI on board -Surgery on board and recommend if massive LGIB occur consult IR for embolization -Abdomen CTA shows no definite bleeding site can be identified, numerous non specific splenic nodules -pantoprazole daily -Hg 8.8 -monitor Hg daily Code(s): K92.2 - GASTROINTESTINAL HEMORRHAGE, UNSPECIFIED Qualifiers: GI bleed type/associated pathology: unspecified gastrointestinal hemorrhage type Qualified Code(s): K92.2 - Gastrointestinal hemorrhage, unspecified (5) Syncopal episodes Assessment/Plan: -cardiology recommendation appreciated Code(s): R55 - SYNCOPE AND COLLAPSE (6) Hypotension Assessment/Plan: -hold BP meds if SBP <110 and/or DBP <70 -cardiology on board Code(s): I95.9 - HYPOTENSION, UNSPECIFIED (7) Nodule of spleen Assessment/Plan: -hematology consult Code(s): D73.9 - DISEASE OF SPLEEN, UNSPECIFIED
[2019-01-01] MEDS ORDERED: PT OWN MED DRAWER 7, Y5N ONE (09:06)
[2019-01-01] MEDS: LOSARTAN POTASSIUM 25 MG TABLET PO SCH (09:13)
[2019-01-01] MEDS: FOLIC ACID 1 MG TABLET (FP) PO SCH (09:14)
[2019-01-01] MEDS: ASPIRIN COATED 81 MG TABLET.EC PO SCH (09:14)
[2019-01-01] MEDS: POLYETHYLENE GLYCOL 3350 119 GM BTL PO SCH (09:14)
[2019-01-01] MEDS: predniSONE 5 MG TABLET (UD) PO SCH (09:14)
[2019-01-01] MEDS: HYDROXYUREA 500 MG CAPSULE PO SCH (09:14)
[2019-01-01] MEDS: PANTOPRAZOLE 40 MG TABLET (FP) PO SCH (09:15)
[2019-01-01] MEDS: CLOPIDOGREL BISULFATE 75 MG TABLET (FP) PO SCH (09:15)
[2019-01-01] MEDS: CHOLECALCIFEROL (VITAMIN D3) 1,000 UNIT TABLET (FP) PO SCH (09:15)
[2019-01-01] MEDS: amLODIPine BESYLATE 10 MG TABLET (FP) PO SCH (09:15)
--- NOTE | 2019-01-01 17:51 | PN ---
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 Received fluid resuscitation , but no transfusion . Hct has decreased from 37% to 25%. Recently without significant rectal bleeding Last Vital Signs Temp Pulse Resp BP Pulse Ox 98.2 F 70 20 148/78 97 01/01/19 08:15 01/01/19 08:15 01/01/19 08:15 01/01/19 08:15 12/28/18 14:34 CBC, BMP 01/01/19 07:25 01/01/19 07:25 Current Medications Generic Name Dose Route Start Last Admin Trade Name Freq PRN Reason Stop Dose Admin Amlodipine Besylate 10 mg 12/29/18 10:00 01/01/19 09:15 Norvasc - PO 10 mg DAILY [facility] Administration Aspirin 81 mg 01/01/19 10:00 01/01/19 09:14 Ecotrin - PO 81 mg DAILY [facility] Administration Atorvastatin Calcium 10 mg 12/28/18 22:00 12/31/18 22:00 Lipitor - PO 10 mg HS [facility] Administration Cholecalciferol 1,000 unit 12/29/18 10:00 01/01/19 09:15 Vitamin D3 - PO 1,000 unit DAILY [facility] Administration Clopidogrel Bisulfate 75 mg 12/30/18 10:00 01/01/19 09:15 Plavix - PO 75 mg DAILY [facility] Administration Ferrous Gluconate 324 mg 12/30/18 19:00 01/01/19 17:22 Fergon - PO 324 mg TIDCM [facility] Administration Folic Acid 1 mg 12/29/18 10:00 01/01/19 09:14 Folic Acid - PO 1 mg DAILY [facility] Administration Hydroxyurea 500 mg 12/29/18 10:00 01/01/19 09:14 Hydrea - PO 500 mg DAILY [facility] Administration Levothyroxine Sodium 75 mcg 12/29/18 07:00 01/01/19 06:20 Synthroid - PO 75 mcg DAILY@0700 [facility] Administration Losartan Potassium 25 mg 12/29/18 10:00 01/01/19 09:13 Cozaar - PO 25 mg DAILY [facility] Administration Metformin HCl 500 mg 01/02/19 07:00 Glucophage - PO DAILY@0700 [facility] Montelukast Sodium 10 mg 12/28/18 23:00 12/31/18 22:00 Singulair - PO 10 mg HS [facility] Administration Pantoprazole Sodium 40 mg 01/01/19 10:00 01/01/19 09:15 Protonix - PO 40 mg DAILY [facility] Administration Polyethylene Glycol 17 gm 01/01/19 10:00 01/01/19 09:14 Miralax (For Daily Use) - PO 17 gm DAILY [facility] Administration Prednisone 5 mg 12/29/18 10:00 01/01/19 09:14 Deltasone - PO 5 mg DAILY [facility] Administration HEENT: MARLIN, EOM Intact Oropharynx: No thrush, No mucositis,dentures Neck: Supple Nodes: Without adenopathy Breasts: Without masses Cor: RSR, No murmurs, No gallops Lungs: Clear to P&A Abd: Soft, Normal bowel sounds, No organomegaly Ext:No significant edema Skin: No rashes, Integument intact Impression: Rectal bleed ? diverticulosis P.Vera on Hydrea and ASA S/P PCI on ASA and Plavix HBP HPL DM Would monitor CBC - hold off transfusion currently . Would maintain ASA and hydrea at current dosing GI work ongoing Plavix therapy x one year.
--- NOTE | 2019-01-01 18:50 | CONS ---
DATE OF CONSULTATION: 01/01/2019 HISTORY OF PRESENT ILLNESS: This is a 78-year-old female who presented with rectal bleeding. There is a past history of polycythemia vera for which the patient is well known to me. She has been on hydroxyurea as well as aspirin therapy for many years secondary to same. The patient is a nonsmoker, nondrinker, no industrial exposures or intoxicants. She is not , has 1 child in good health. Family history is negative for malignancies or other underlying myeloproliferative disorders. PAST MEDICAL HISTORY: Includes hypertension, diabetes, hypercholesterolemia, thyroid disease, polycythemia and recently cardiac stents in September of 2018 for which the patient was placed on Plavix therapy in addition to aspirin therapy. The patient presented to the emergency room hypotensive with significant blood per rectum, received IV hydration and has not required transfusion therapy. Additional history includes that of rheumatoid arthritis. ALLERGIES: Include seasonal allergies with POLLEN and RAGWEED. MEDICATION: Include prednisone 5 per day, Cozaar 25, hydroxyurea 500, Glucophage 500 daily, Miralax, Norvasc 10, Lipitor, iron therapy, Singulair, aspirin 81, Plavix 75, Protonix, folic acid, and vitamin D. REVIEW OF SYSTEMS: Patient denies headaches, diplopia, epistaxis, dysphagia, chest pain, shortness of breath, fever sweats, night sweats. Patient has annual mammograms, reportedly unremarkable. Denies nausea, vomiting, diarrhea, constipation. Has aforementioned blood per rectum. No dysuria, hematuria. No postmenopausal vaginal bleeding. Rheumatoid arthritis with musculoskeletal symptoms. CURRENT PHYSICAL EXAMINATION: VITAL SIGNS: Blood pressure 148/78, pulse 70, respiratory rate 20, temperature 98.2. HEENT: MARLIN. EOM intact. Oropharynx unremarkable. Patient has upper and lower dentures. Tongue is papillated. No cervical, supraclavicular, or axillary nodes. LUNGS: Clear to P and A. CARDIAC: RSR. BREAST: No dominant masses, dimpling, retraction. ABDOMEN: Soft. No definite organomegaly or masses. EXTREMITIES: No significant edema. Good pulses in the dorsalis pedis and posterior tibial. LABORATORY: On admission, WBC 8.8, hematocrit 37, platelets 464,000 with normal differential. Current hematocrit 25%, WBC 6.9, platelets 392,000. IMPRESSION: A 78-year-old female presented with rectal bleeding, currently felt to be likely diverticular disease being monitored. From the hematologic point of view, patient should be maintained on aspirin as well as hydroxyurea therapy. Current WBC, platelet count are acceptable levels, and hydroxyurea 500 mg daily should be maintained. Additional management per GI. No transfusion therapy required at this particular point in time, but serial monitoring of hemoglobin and hematocrit. FABIEN DIALLO M.D. MARY [id number]
[2019-01-01] MEDS: ATORVASTATIN CA 10 MG TABLET (FP) PO SCH (21:44)
[2019-01-01] MEDS: MONTELUKAST NA 10 MG TABLET PO SCH (21:44)
[2019-01-02] MEDS: LEVOTHYROXINE NA 75 MCG TABLET (FP) PO SCH (06:53)
[2019-01-02] MEDS ORDERED: metFORMIN HCL 500 MG TABLET (FP) PO SCH (07:00)
--- NOTE | 2019-01-02 07:40 | PN.GI ---
GI Progress Note Subjective: Patient denies rectal bleeding, abdominal pain. She states she had a BM yesterday black in color. On 01/01 Hg 8.8, pending CBC results this morning. - Objective Vital Signs: Vital Signs Temperature 97.8 F 01/02/19 05:44 Pulse Rate 60 01/02/19 05:44 Respiratory Rate 20 01/01/19 21:42 Blood Pressure 140/69 01/02/19 05:44 O2 Sat by Pulse Oximetry (%) 100 01/01/19 21:00 Constitutional: No Distress, Calm Eyes: Yes: Conjunctiva Clear HENT: Yes: Atraumatic Cardiovascular: Yes: Regular Rate and Rhythm Respiratory: Yes: Regular, CTA Bilaterally Gastrointestinal Inspection: Yes: WNL. No: Ascites, Distention, Hernia, Scars, Other ...Auscultate: Yes: Normoactive Bowel Sounds. No: Hyperactive Bowel Sounds, Hypoactive Bowel Sounds, No Bowel Sounds, Other ...Palpate: Yes: Soft. No: Firm/Rigid, Guarding, Hepatomegaly, Mass, Pulsatile Mass, Splenomegaly, Tenderness, Tenderness, Epigastium, Tenderness, Rebound, Other ...Percussion: Yes: Tympanitic. No: Dullness, Fluid Wave, Other Labs: CBC, BMP 01/01/19 07:25 01/01/19 07:25 INR, PTT INR 1.05 (0.83-1.09) 12/29/18 06:40 Problem List - Problems (1) GI bleed Assessment/Plan: most likely seconndary to diverticula bleeding R>continue pantoprazole >serial CBC to monitor Hg >aspirin started as per cardiology recommendation, continue plavix >Colonoscopy in 2013 shows extrinsic compression in the cecum, redundant sigmoid , diverticula scattered in the left colom, ulcaerated and deformed ICV with biopsy showing colonic mucosa with focal erosion and mild active cryptitis Ferrrous sulfate 325 mg tid Code(s): K92.2 - GASTROINTESTINAL HEMORRHAGE, UNSPECIFIED Qualifiers: GI bleed type/associated pathology: unspecified gastrointestinal hemorrhage type Qualified Code(s): K92.2 - Gastrointestinal hemorrhage, unspecified (2) Unintentional weight loss Assessment/Plan: >tumor markers negative Code(s): R63.4 - ABNORMAL WEIGHT LOSS (3) Nodule of spleen Assessment/Plan: >hematology on board Code(s): D73.9 - DISEASE OF SPLEEN, UNSPECIFIED (4) Constipation Assessment/Plan: > miralax daily Code(s): K59.00 - CONSTIPATION, UNSPECIFIED
[2019-01-02 07:52] LABS: HEMATOCRIT 30.5 % (32.4-45.2); MCH 35.5 pg (25.7-33.7); MCHC 32.9 g/dl (32.0-36.0); MEAN CELL VOLUME 107.9 fl (80-96); MEAN PLT VOLUME 7.2 fl (7.5-11.1); PLATELET COUNT 512 K/MM3 (134-434); RBC 2.82 M/mm3 (3.60-5.2); RDW 18.2 % (11.6-15.6); WHITE BLOOD COUNT 8.9 K/mm3 (4.0-10.0)
[2019-01-02 08:35] LABS: ALBUMIN 3.1 g/dl (3.4-5.0); ALK PHOS 71 U/L (45-117); ANION GAP 7 MMOL/L (8-16); BILIRUBIN,TOTAL 0.3 mg/dL (0.2-1); BLOOD UREA NITROGEN 11 mg/dL (7-18); CALCIUM 9.2 mg/dL (8.5-10.1); CHLORIDE 105 mmol/L (98-107); CO2 27 mmol/L (21-32); CREATININE 1.1 mg/dL (0.55-1.3); GLUCOSE,RANDOM 185 mg/dL (74-106); POTASSIUM 3.7 mmol/L (3.5-5.1); SGOT/AST 14 U/L (15-37); SGPT/ALT 13 U/L (13-61); SODIUM 139 mmol/L (136-145); TOT PROT 6.1 g/dl (6.4-8.2)
[2019-01-02 11:15] VITALS: BP 149/72; PULSE 71; TEMP 98.2
[2019-01-02] MEDS: LOSARTAN POTASSIUM 25 MG TABLET PO SCH (11:15)
[2019-01-02] MEDS: FOLIC ACID 1 MG TABLET (FP) PO SCH (11:16)
[2019-01-02] MEDS: PANTOPRAZOLE 40 MG TABLET (FP) PO SCH (11:16)
[2019-01-02] MEDS: CHOLECALCIFEROL (VITAMIN D3) 1,000 UNIT TABLET (FP) PO SCH (11:16)
[2019-01-02] MEDS: FERROUS GLUCONATE 324 MG TAB (FP) PO SCH ×2 (11:16→11:17)
[2019-01-02] MEDS: predniSONE 5 MG TABLET (UD) PO SCH (11:16)
[2019-01-02] MEDS: amLODIPine BESYLATE 10 MG TABLET (FP) PO SCH (11:16)
[2019-01-02] MEDS: ASPIRIN COATED 81 MG TABLET.EC PO SCH (11:17)
[2019-01-02] MEDS: HYDROXYUREA 500 MG CAPSULE PO SCH (11:17)
[2019-01-02] MEDS: CLOPIDOGREL BISULFATE 75 MG TABLET (FP) PO SCH (11:17)
[2019-01-02] MEDS: POLYETHYLENE GLYCOL 3350 119 GM BTL PO SCH (11:18)
--- NOTE | 2019-01-02 13:09 | DS ---
Physical Examination Vital Signs: Vital Signs Temperature 98.2 F 01/02/19 10:00 Pulse Rate 71 01/02/19 10:00 Respiratory Rate 18 01/02/19 10:00 Blood Pressure 149/72 01/02/19 10:00 O2 Sat by Pulse Oximetry (%) 100 01/01/19 21:00 Findings/Remarks: Patient is a 78 y/o female with past medical history of HTN, HLD, Hyypothyroidism, RA, Polycythemia Vera, DM, recent cardiac stent placement as per patient. Patient presented to ER after experiencing bloody diarrhea x 2 episodes this morning. Patient denied abdominal pain, dizziness, palpitations when bloody diarrhea began. In ER labs noted with Hg 13, BP 145/77, Stool OB positive. While on unit patient had episode of rectal bleeding with clots noted in bed bosch and with BP 70/35 and patient had near syncopal episode but no LOC as per RN. Received NS 500cc bolus STAT and BP increase to 114/55. On exam patient is alert and oriented, denies chest pain, palpitation, dizziness. Since admission rectal bleeding has subsided, Hg trended up to 10.0 currently. Patient is started on Ferrous sulfate. Instructed to follow up with PMD and GI after discharge. Constitutional: Yes: No Distress, Calm Eyes: Yes: Conjunctiva Clear HENT: Yes: Atraumatic Cardiovascular: Yes: Regular Rate and Rhythm Respiratory: Yes: Regular, CTA Bilaterally Gastrointestinal: Yes: Normal Bowel Sounds, Soft Musculoskeletal: Yes: WNL Extremities: Yes: WNL Edema: No Neurological: Yes: Alert, Oriented Psychiatric: Yes: Alert, Oriented Labs: CBC, BMP 01/02/19 06:30 01/02/19 06:30 Microbiology 12/28/18 12:41 Urine - Urine Clean Catch Urine Culture - Final Discharge Summary Reason For Visit: GASTROINTESTINAL HEMORRHAGE Current Active Problems CAD (coronary artery disease) (Acute) Constipation (Acute) Diabetes mellitus (Acute) GI bleed (Acute) HLD (hyperlipidemia) (Acute) HTN (hypertension) (Acute) Hypotension (Acute) Nodule of spleen (Acute) Rectal bleed (Acute) Stented coronary artery (Acute) Syncopal episodes (Acute) Unintentional weight loss (Acute) Procedures: Principal: Abdomen and Pelvic CTA Hospital Course: see progress notes Laboratory Tests 12/28/18 12/28/18 12/28/18 12:41 12:41 12:50 WBC 8.8 RBC 3.43 L Hgb 13.0 Hct 37.5 D MCV 109.3 H MCH 38.0 H D MCHC 34.8 RDW 18.3 H Plt Count 464 H MPV 7.6 Absolute Neuts (auto) 7.3 Neutrophils % 82.8 Neutrophils % (Manual) 86.1 H Band Neutrophils % 0.0 Lymphocytes % 7.5 L D Lymphocytes % (Manual) 6.9 L Monocytes % 8.0 Monocytes % (Manual) 5 Eosinophils % 1.0 Eosinophils % (Manual) 1.0 Basophils % 0.7 Basophils % (Manual) 0.0 Myelocytes % (Man) 0 Promyelocytes % (Man) 0 Blast Cells % (Manual) 0 Nucleated RBC % 0 Metamyelocytes 0 Hypochromia 0 Platelet Estimate Normal Polychromasia 1+ Poikilocytosis 0 Anisocytosis 1+ Microcytosis Macrocytosis 1+ Ovalocytes 1+ Retic Count PT with INR INR Sodium Potassium Chloride Carbon Dioxide Anion Gap BUN Creatinine Creat Clearance w eGFR POC Glucometer Random Glucose Calcium Phosphorus Magnesium Iron TIBC Iron Saturation Ferritin Total Bilirubin AST ALT Alkaline Phosphatase Total Protein Albumin Tumor Marker AFP Carcinoembryonic Ag CA 19-9 Antigen CA 125 Antigen Urine Color Yellow Urine Appearance Clear Urine pH 5.0 Ur Specific [place] 1.023 Urine Protein Negative Urine Glucose (UA) 3+ Urine Ketones Negative Urine Blood 2+ Urine Nitrite Negative Urine Bilirubin Negative Urine Urobilinogen 0.2 Ur Leukocyte Esterase Negative Urine WBC (Auto) 1 Urine RBC (Auto) 7 Urine Casts (Auto) 0 U Epithel Cells (Auto) 0.3 Urine Bacteria (Auto) 1.512 Stool Occult Blood Positive Blood Type Antibody Screen Crossmatch 12/28/18 12/28/18 12/28/18 12:50 12:50 12:50 WBC RBC Hgb Hct MCV MCH MCHC RDW Plt Count MPV Absolute Neuts (auto) Neutrophils % Neutrophils % (Manual) Band Neutrophils % Lymphocytes % Lymphocytes % (Manual) Monocytes % Monocytes % (Manual) Eosinophils % Eosinophils % (Manual) Basophils % Basophils % (Manual) Myelocytes % (Man) Promyelocytes % (Man) Blast Cells % (Manual) Nucleated RBC % Metamyelocytes Hypochromia Platelet Estimate Polychromasia Poikilocytosis Anisocytosis Microcytosis Macrocytosis Ovalocytes Retic Count 1.93 H PT with INR INR Sodium 138 Potassium 4.7 Chloride 106 Carbon Dioxide 27 Anion Gap 4 L BUN 20 H Creatinine 1.1 Creat Clearance w eGFR 47.91 POC Glucometer Random Glucose 188 H Calcium 9.2 Phosphorus Magnesium Iron TIBC Iron Saturation Ferritin Total Bilirubin 0.6 AST 27 ALT 16 Alkaline Phosphatase 78 Total Protein 6.4 Albumin 3.3 L Tumor Marker AFP Carcinoembryonic Ag CA 19-9 Antigen CA 125 Antigen Urine Color Urine Appearance Urine pH Ur Specific [place] Urine Protein Urine Glucose (UA) Urine Ketones Urine Blood Urine Nitrite Urine Bilirubin Urine Urobilinogen Ur Leukocyte Esterase Urine WBC (Auto) Urine RBC (Auto) Urine Casts (Auto) U Epithel Cells (Auto) Urine Bacteria (Auto) Stool Occult Blood Blood Type A POSITIVE Antibody Screen Negative Crossmatch 12/28/18 12/28/18 12/28/18 12:50 16:38 18:15 WBC 5.7 RBC 2.52 L Hgb 9.5 L Hct 27.8 L D MCV 110.4 H MCH 37.7 H MCHC 34.2 RDW 18.5 H Plt Count 369 D MPV 7.2 L Absolute Neuts (auto) Neutrophils % Neutrophils % (Manual) Band Neutrophils % Lymphocytes % Lymphocytes % (Manual) Monocytes % Monocytes % (Manual) Eosinophils % Eosinophils % (Manual) Basophils % Basophils % (Manual) Myelocytes % (Man) Promyelocytes % (Man) Blast Cells % (Manual) Nucleated RBC % Metamyelocytes Hypochromia Platelet Estimate Polychromasia Poikilocytosis Anisocytosis Microcytosis Macrocytosis Ovalocytes Retic Count PT with INR 12.4 INR 1.11 Sodium Potassium Chloride Carbon Dioxide Anion Gap BUN Creatinine Creat Clearance w eGFR POC Glucometer Random Glucose Calcium Phosphorus Magnesium Iron TIBC Iron Saturation Ferritin Total Bilirubin AST ALT Alkaline Phosphatase Total Protein Albumin Tumor Marker AFP Carcinoembryonic Ag CA 19-9 Antigen CA 125 Antigen Urine Color Urine Appearance Urine pH Ur Specific [place] Urine Protein Urine Glucose (UA) Urine Ketones Urine Blood Urine Nitrite Urine Bilirubin Urine Urobilinogen Ur Leukocyte Esterase Urine WBC (Auto) Urine RBC (Auto) Urine Casts (Auto) U Epithel Cells (Auto) Urine Bacteria (Auto) Stool Occult Blood Blood Type A POSITIVE Antibody Screen Negative Crossmatch 12/28/18 12/28/18 12/29/18 18:15 20:55 06:11 WBC RBC Hgb Hct MCV MCH MCHC RDW Plt Count MPV Absolute Neuts (auto) Neutrophils % Neutrophils % (Manual) Band Neutrophils % Lymphocytes % Lymphocytes % (Manual) Monocytes % Monocytes % (Manual) Eosinophils % Eosinophils % (Manual) Basophils % Basophils % (Manual) Myelocytes % (Man) Promyelocytes % (Man) Blast Cells % (Manual) Nucleated RBC % Metamyelocytes Hypochromia Platelet Estimate Polychromasia Poikilocytosis Anisocytosis Microcytosis Macrocytosis Ovalocytes Retic Count PT with INR INR Sodium Potassium Chloride Carbon Dioxide Anion Gap BUN Creatinine Creat Clearance w eGFR POC Glucometer 122 59 Random Glucose Calcium Phosphorus Magnesium Iron TIBC Iron Saturation Ferritin Total Bilirubin AST ALT Alkaline Phosphatase Total Protein Albumin Tumor Marker AFP Carcinoembryonic Ag CA 19-9 Antigen CA 125 Antigen Urine Color Urine Appearance Urine pH Ur Specific [place] Urine Protein Urine Glucose (UA) Urine Ketones Urine Blood Urine Nitrite Urine Bilirubin Urine Urobilinogen Ur Leukocyte Esterase Urine WBC (Auto) Urine RBC (Auto) Urine Casts (Auto) U Epithel Cells (Auto) Urine Bacteria (Auto) Stool Occult Blood Blood Type A POSITIVE Antibody Screen Crossmatch 12/29/18 12/29/18 12/29/18 06:40 06:40 06:40 WBC 6.9 RBC 2.30 L Hgb 8.7 L Hct 25.4 L MCV 110.3 H MCH 37.7 H MCHC 34.2 RDW 18.7 H Plt Count 367 MPV 6.9 L Absolute Neuts (auto) 5.3 Neutrophils % 75.8 Neutrophils % (Manual) Band Neutrophils % Lymphocytes % 13.6 D Lymphocytes % (Manual) Monocytes % 8.3 Monocytes % (Manual) Eosinophils % 1.3 Eosinophils % (Manual) Basophils % 1.0 Basophils % (Manual) Myelocytes % (Man) Promyelocytes % (Man) Blast Cells % (Manual) Nucleated RBC % 0 Metamyelocytes Hypochromia Platelet Estimate Polychromasia Poikilocytosis Anisocytosis Microcytosis Macrocytosis Ovalocytes Retic Count PT with INR 12.40 INR 1.05 Sodium 144 Potassium 3.9 Chloride 113 H Carbon Dioxide 20 L Anion Gap 10 BUN 18 Creatinine 1.1 Creat Clearance w eGFR 47.91 POC Glucometer Random Glucose 71 L Calcium 7.9 L Phosphorus 4.1 Magnesium 1.8 Iron TIBC Iron Saturation Ferritin Total Bilirubin 0.4 AST 11 L ALT 9 L Alkaline Phosphatase 57 Total Protein 4.9 L Albumin 2.5 L Tumor Marker AFP Carcinoembryonic Ag CA 19-9 Antigen CA 125 Antigen Urine Color Urine Appearance Urine pH Ur Specific [place] Urine Protein Urine Glucose (UA) Urine Ketones Urine Blood Urine Nitrite Urine Bilirubin Urine Urobilinogen Ur Leukocyte Esterase Urine WBC (Auto) Urine RBC (Auto) Urine Casts (Auto) U Epithel Cells (Auto) Urine Bacteria (Auto) Stool Occult Blood Blood Type Antibody Screen Crossmatch 12/29/18 12/29/18 12/29/18 06:57 12:25 17:24 WBC RBC Hgb Hct MCV MCH MCHC RDW Plt Count MPV Absolute Neuts (auto) Neutrophils % Neutrophils % (Manual) Band Neutrophils % Lymphocytes % Lymphocytes % (Manual) Monocytes % Monocytes % (Manual) Eosinophils % Eosinophils % (Manual) Basophils % Basophils % (Manual) Myelocytes % (Man) Promyelocytes % (Man) Blast Cells % (Manual) Nucleated RBC % Metamyelocytes Hypochromia Platelet Estimate Polychromasia Poikilocytosis Anisocytosis Microcytosis Macrocytosis Ovalocytes Retic Count PT with INR INR Sodium Potassium Chloride Carbon Dioxide Anion Gap BUN Creatinine Creat Clearance w eGFR POC Glucometer 74 63 69 Random Glucose Calcium Phosphorus Magnesium Iron TIBC Iron Saturation Ferritin Total Bilirubin AST ALT Alkaline Phosphatase Total Protein Albumin Tumor Marker AFP Carcinoembryonic Ag CA 19-9 Antigen CA 125 Antigen Urine Color Urine Appearance Urine pH Ur Specific [place] Urine Protein Urine Glucose (UA) Urine Ketones Urine Blood Urine Nitrite Urine Bilirubin Urine Urobilinogen Ur Leukocyte Esterase Urine WBC (Auto) Urine RBC (Auto) Urine Casts (Auto) U Epithel Cells (Auto) Urine Bacteria (Auto) Stool Occult Blood Blood Type Antibody Screen Crossmatch 12/30/18 12/30/18 12/30/18 06:04 07:10 07:10 WBC 7.3 RBC 2.46 L Hgb 9.6 L Hct 27.2 L MCV 110.9 H MCH 39.0 H MCHC 35.2 RDW 18.3 H Plt Count 422 MPV 6.9 L Absolute Neuts (auto) 5.6 Neutrophils % 76.9 Neutrophils % (Manual) 76.9 Band Neutrophils % 0.0 Lymphocytes % 11.0 Lymphocytes % (Manual) 10.6 D Monocytes % 7.9 Monocytes % (Manual) 7 Eosinophils % 2.9 D Eosinophils % (Manual) 4.8 H D Basophils % 1.3 Basophils % (Manual) 0.0 Myelocytes % (Man) 0 Promyelocytes % (Man) 0 Blast Cells % (Manual) 0 Nucleated RBC % 0 Metamyelocytes 0 Hypochromia 0 Platelet Estimate Normal Polychromasia 0 Poikilocytosis 1+ Anisocytosis 1+ Microcytosis 0 Macrocytosis 1+ Ovalocytes 1+ Retic Count 2.69 H D PT with INR INR Sodium 141 Potassium 4.0 Chloride 110 H Carbon Dioxide 24 Anion Gap 6 L BUN 15 Creatinine 1.1 Creat Clearance w eGFR 47.91 POC Glucometer 94 Random Glucose 130 H Calcium 8.7 Phosphorus Magnesium Iron TIBC Iron Saturation Ferritin 39.2 Total Bilirubin 0.4 AST 12 L ALT 10 L Alkaline Phosphatase 63 Total Protein 5.4 L Albumin 2.8 L Tumor Marker AFP Carcinoembryonic Ag CA 19-9 Antigen CA 125 Antigen Urine Color Urine Appearance Urine pH Ur Specific [place] Urine Protein Urine Glucose (UA) Urine Ketones Urine Blood Urine Nitrite Urine Bilirubin Urine Urobilinogen Ur Leukocyte Esterase Urine WBC (Auto) Urine RBC (Auto) Urine Casts (Auto) U Epithel Cells (Auto) Urine Bacteria (Auto) Stool Occult Blood Blood Type Antibody Screen Crossmatch 12/30/18 12/30/18 12/30/18 07:10 10:15 10:15 WBC RBC Hgb Hct MCV MCH MCHC RDW Plt Count MPV Absolute Neuts (auto) Neutrophils % Neutrophils % (Manual) Band Neutrophils % Lymphocytes % Lymphocytes % (Manual) Monocytes % Monocytes % (Manual) Eosinophils % Eosinophils % (Manual) Basophils % Basophils % (Manual) Myelocytes % (Man) Promyelocytes % (Man) Blast Cells % (Manual) Nucleated RBC % Metamyelocytes Hypochromia Platelet Estimate Polychromasia Poikilocytosis Anisocytosis Microcytosis Macrocytosis Ovalocytes Retic Count PT with INR INR Sodium Potassium Chloride Carbon Dioxide Anion Gap BUN Creatinine Creat Clearance w eGFR POC Glucometer Random Glucose Calcium Phosphorus Magnesium Iron 27 TIBC 211 L Iron Saturation 13 L Ferritin Total Bilirubin AST ALT Alkaline Phosphatase Total Protein Albumin Tumor Marker AFP 2.0 Carcinoembryonic Ag 2.5 CA 19-9 Antigen 5 CA 125 Antigen 9.4 Urine Color Urine Appearance Urine pH Ur Specific [place] Urine Protein Urine Glucose (UA) Urine Ketones Urine Blood Urine Nitrite Urine Bilirubin Urine Urobilinogen Ur Leukocyte Esterase Urine WBC (Auto) Urine RBC (Auto) Urine Casts (Auto) U Epithel Cells (Auto) Urine Bacteria (Auto) Stool Occult Blood Blood Type A POSITIVE Antibody Screen Negative Crossmatch See Detail 12/30/18 12/30/18 12/30/18 11:43 16:33 21:30 WBC RBC Hgb Hct MCV MCH MCHC RDW Plt Count MPV Absolute Neuts (auto) Neutrophils % Neutrophils % (Manual) Band Neutrophils % Lymphocytes % Lymphocytes % (Manual) Monocytes % Monocytes % (Manual) Eosinophils % Eosinophils % (Manual) Basophils % Basophils % (Manual) Myelocytes % (Man) Promyelocytes % (Man) Blast Cells % (Manual) Nucleated RBC % Metamyelocytes Hypochromia Platelet Estimate Polychromasia Poikilocytosis Anisocytosis Microcytosis Macrocytosis Ovalocytes Retic Count PT with INR INR Sodium Potassium Chloride Carbon Dioxide Anion Gap BUN Creatinine Creat Clearance w eGFR POC Glucometer 183 249 197 Random Glucose Calcium Phosphorus Magnesium Iron TIBC Iron Saturation Ferritin Total Bilirubin AST ALT Alkaline Phosphatase Total Protein Albumin Tumor Marker AFP Carcinoembryonic Ag CA 19-9 Antigen CA 125 Antigen Urine Color Urine Appearance Urine pH Ur Specific [place] Urine Protein Urine Glucose (UA) Urine Ketones Urine Blood Urine Nitrite Urine Bilirubin Urine Urobilinogen Ur Leukocyte Esterase Urine WBC (Auto) Urine RBC (Auto) Urine Casts (Auto) U Epithel Cells (Auto) Urine Bacteria (Auto) Stool Occult Blood Blood Type Antibody Screen Crossmatch 12/31/18 12/31/18 12/31/18 06:07 12:03 17:37 WBC RBC Hgb Hct MCV MCH MCHC RDW Plt Count MPV Absolute Neuts (auto) Neutrophils % Neutrophils % (Manual) Band Neutrophils % Lymphocytes % Lymphocytes % (Manual) Monocytes % Monocytes % (Manual) Eosinophils % Eosinophils % (Manual) Basophils % Basophils % (Manual) Myelocytes % (Man) Promyelocytes % (Man) Blast Cells % (Manual) Nucleated RBC % Metamyelocytes Hypochromia Platelet Estimate Polychromasia Poikilocytosis Anisocytosis Microcytosis Macrocytosis Ovalocytes Retic Count PT with INR INR Sodium Potassium Chloride Carbon Dioxide Anion Gap BUN Creatinine Creat Clearance w eGFR POC Glucometer 127 247 237 Random Glucose Calcium Phosphorus Magnesium Iron TIBC Iron Saturation Ferritin Total Bilirubin AST ALT Alkaline Phosphatase Total Protein Albumin Tumor Marker AFP Carcinoembryonic Ag CA 19-9 Antigen CA 125 Antigen Urine Color Urine Appearance Urine pH Ur Specific [place] Urine Protein Urine Glucose (UA) Urine Ketones Urine Blood Urine Nitrite Urine Bilirubin Urine Urobilinogen Ur Leukocyte Esterase Urine WBC (Auto) Urine RBC (Auto) Urine Casts (Auto) U Epithel Cells (Auto) Urine Bacteria (Auto) Stool Occult Blood Blood Type Antibody Screen Crossmatch 12/31/18 01/01/19 01/01/19 22:49 06:19 07:25 WBC 6.9 RBC 2.28 L Hgb 8.8 L Hct 25.0 L MCV 109.4 H MCH 38.7 H MCHC 35.4 RDW 17.8 H Plt Count 392 MPV 7.0 L Absolute Neuts (auto) Neutrophils % Neutrophils % (Manual) Band Neutrophils % Lymphocytes % Lymphocytes % (Manual) Monocytes % Monocytes % (Manual) Eosinophils % Eosinophils % (Manual) Basophils % Basophils % (Manual) Myelocytes % (Man) Promyelocytes % (Man) Blast Cells % (Manual) Nucleated RBC % Metamyelocytes Hypochromia Platelet Estimate Polychromasia Poikilocytosis Anisocytosis Microcytosis Macrocytosis Ovalocytes Retic Count PT with INR INR Sodium Potassium Chloride Carbon Dioxide Anion Gap BUN Creatinine Creat Clearance w eGFR POC Glucometer 257 154 Random Glucose Calcium Phosphorus Magnesium Iron TIBC Iron Saturation Ferritin Total Bilirubin AST ALT Alkaline Phosphatase Total Protein Albumin Tumor Marker AFP Carcinoembryonic Ag CA 19-9 Antigen CA 125 Antigen Urine Color Urine Appearance Urine pH Ur Specific [place] Urine Protein Urine Glucose (UA) Urine Ketones Urine Blood Urine Nitrite Urine Bilirubin Urine Urobilinogen Ur Leukocyte Esterase Urine WBC (Auto) Urine RBC (Auto) Urine Casts (Auto) U Epithel Cells (Auto) Urine Bacteria (Auto) Stool Occult Blood Blood Type Antibody Screen Crossmatch 01/01/19 01/01/19 01/01/19 07:25 11:16 16:45 WBC RBC Hgb Hct MCV MCH MCHC RDW Plt Count MPV Absolute Neuts (auto) Neutrophils % Neutrophils % (Manual) Band Neutrophils % Lymphocytes % Lymphocytes % (Manual) Monocytes % Monocytes % (Manual) Eosinophils % Eosinophils % (Manual) Basophils % Basophils % (Manual) Myelocytes % (Man) Promyelocytes % (Man) Blast Cells % (Manual) Nucleated RBC % Metamyelocytes Hypochromia Platelet Estimate Polychromasia Poikilocytosis Anisocytosis Microcytosis Macrocytosis Ovalocytes Retic Count PT with INR INR Sodium 144 Potassium 3.6 Chloride 113 H Carbon Dioxide 28 Anion Gap 3 L BUN 9 Creatinine 1.1 Creat Clearance w eGFR 47.91 POC Glucometer 295 289 Random Glucose 156 H Calcium 8.5 Phosphorus Magnesium Iron TIBC Iron Saturation Ferritin Total Bilirubin 0.2 AST 9 L ALT 11 L Alkaline Phosphatase 62 Total Protein 5.2 L Albumin 2.6 L Tumor Marker AFP Carcinoembryonic Ag CA 19-9 Antigen CA 125 Antigen Urine Color Urine Appearance Urine pH Ur Specific [place] Urine Protein Urine Glucose (UA) Urine Ketones Urine Blood Urine Nitrite Urine Bilirubin Urine Urobilinogen Ur Leukocyte Esterase Urine WBC (Auto) Urine RBC (Auto) Urine Casts (Auto) U Epithel Cells (Auto) Urine Bacteria (Auto) Stool Occult Blood Blood Type Antibody Screen Crossmatch 01/01/19 01/02/19 01/02/19 21:29 06:30 06:30 WBC 8.9 RBC 2.82 L Hgb 10.0 L Hct 30.5 L D MCV 107.9 H MCH 35.5 H MCHC 32.9 RDW 18.2 H Plt Count 512 H D MPV 7.2 L Absolute Neuts (auto) Neutrophils % Neutrophils % (Manual) Band Neutrophils % Lymphocytes % Lymphocytes % (Manual) Monocytes % Monocytes % (Manual) Eosinophils % Eosinophils % (Manual) Basophils % Basophils % (Manual) Myelocytes % (Man) Promyelocytes % (Man) Blast Cells % (Manual) Nucleated RBC % Metamyelocytes Hypochromia Platelet Estimate Polychromasia Poikilocytosis Anisocytosis Microcytosis Macrocytosis Ovalocytes Retic Count PT with INR INR Sodium 139 Potassium 3.7 Chloride 105 Carbon Dioxide 27 Anion Gap 7 L BUN 11 Creatinine 1.1 Creat Clearance w eGFR 47.91 POC Glucometer 240 Random Glucose 185 H Calcium 9.2 Phosphorus Magnesium Iron TIBC Iron Saturation Ferritin Total Bilirubin 0.3 AST 14 L ALT 13 Alkaline Phosphatase 71 Total Protein 6.1 L Albumin 3.1 L Tumor Marker AFP Carcinoembryonic Ag CA 19-9 Antigen CA 125 Antigen Urine Color Urine Appearance Urine pH Ur Specific [place] Urine Protein Urine Glucose (UA) Urine Ketones Urine Blood Urine Nitrite Urine Bilirubin Urine Urobilinogen Ur Leukocyte Esterase Urine WBC (Auto) Urine RBC (Auto) Urine Casts (Auto) U Epithel Cells (Auto) Urine Bacteria (Auto) Stool Occult Blood Blood Type Antibody Screen Crossmatch 01/02/19 06:52 WBC RBC Hgb Hct MCV MCH MCHC RDW Plt Count MPV Absolute Neuts (auto) Neutrophils % Neutrophils % (Manual) Band Neutrophils % Lymphocytes % Lymphocytes % (Manual) Monocytes % Monocytes % (Manual) Eosinophils % Eosinophils % (Manual) Basophils % Basophils % (Manual) Myelocytes % (Man) Promyelocytes % (Man) Blast Cells % (Manual) Nucleated RBC % Metamyelocytes Hypochromia Platelet Estimate Polychromasia Poikilocytosis Anisocytosis Microcytosis Macrocytosis Ovalocytes Retic Count PT with INR INR Sodium Potassium Chloride Carbon Dioxide Anion Gap BUN Creatinine Creat Clearance w eGFR POC Glucometer 193 Random Glucose Calcium Phosphorus Magnesium Iron TIBC Iron Saturation Ferritin Total Bilirubin AST ALT Alkaline Phosphatase Total Protein Albumin Tumor Marker AFP Carcinoembryonic Ag CA 19-9 Antigen CA 125 Antigen Urine Color Urine Appearance Urine pH Ur Specific [place] Urine Protein Urine Glucose (UA) Urine Ketones Urine Blood Urine Nitrite Urine Bilirubin Urine Urobilinogen Ur Leukocyte Esterase Urine WBC (Auto) Urine RBC (Auto) Urine Casts (Auto) U Epithel Cells (Auto) Urine Bacteria (Auto) Stool Occult Blood Blood Type Antibody Screen Crossmatch Active Medications Generic Name Dose Route Start Last Admin Trade Name Freq PRN Reason Stop Dose Admin Amlodipine Besylate 10 mg 12/29/18 10:00 01/02/19 11:16 Norvasc - PO 10 mg DAILY MADELEINE Administration Aspirin 81 mg 01/01/19 10:00 01/02/19 11:17 Ecotrin - PO 81 mg DAILY MADELEINE Administration Atorvastatin Calcium 10 mg 12/28/18 22:00 01/01/19 21:44 Lipitor - PO 10 mg HS MADELEINE Administration Cholecalciferol 1,000 unit 12/29/18 10:00 01/02/19 11:16 Vitamin D3 - PO 1,000 unit DAILY MADELEINE Administration Clopidogrel Bisulfate 75 mg 12/30/18 10:00 01/02/19 11:17 Plavix - PO 75 mg DAILY MADELEINE Administration Ferrous Gluconate 324 mg 12/30/18 19:00 01/02/19 11:17 Fergon - PO 324 mg TIDCM MADELEINE Administration Folic Acid 1 mg 12/29/18 10:00 01/02/19 11:16 Folic Acid - PO 1 mg DAILY MADELEINE Administration Hydroxyurea 500 mg 12/29/18 10:00 01/02/19 11:17 Hydrea - PO 500 mg DAILY MADELEINE Administration Levothyroxine Sodium 75 mcg 12/29/18 07:00 01/02/19 06:53 Synthroid - PO 75 mcg DAILY@0700 MADELEINE Administration Losartan Potassium 25 mg 12/29/18 10:00 01/02/19 11:15 Cozaar - PO 25 mg DAILY MADELEINE Administration Metformin HCl 500 mg 01/02/19 07:00 01/02/19 06:53 Glucophage - PO 500 mg DAILY@0700 MADELEINE Administration Montelukast Sodium 10 mg 12/28/18 23:00 01/01/19 21:44 Singulair - PO 10 mg HS MADELEINE Administration Pantoprazole Sodium 40 mg 01/01/19 10:00 01/02/19 11:16 Protonix - PO 40 mg DAILY MADELEINE Administration Polyethylene Glycol 17 gm 01/01/19 10:00 01/02/19 11:18 Miralax (For Daily Use) - PO 17 gm DAILY MADELEINE Administration Prednisone 5 mg 12/29/18 10:00 01/02/19 11:16 Deltasone - PO 5 mg DAILY MADELEINE Administration Microbiology 12/28/18 12:41 Urine - Urine Clean Catch Urine Culture - Final Condition: Improved - Instructions Diet, Activity, Other Instructions: Follow up with PMD in 1 week follow up with GI Dr. Peoples in 1 week continue with current medication regimen return to ER if develop rectal bleeding, chest pain, severe pain Referrals: Randee Mayo MD [Primary Care Provider] - Ted Peoples MD [Staff Physician] - Disposition: HOME - Home Medications Comprehensive Discharge Medication List: Ambulatory Orders Amlodipine Besylate 10 mg PO DAILY 12/28/18 Ascorbate Calcium [Vitamin C] 500 mg PO DAILY 12/28/18 Aspirin 81 mg PO DAILY 12/28/18 Atorvastatin Calcium [Lipitor] 10 mg PO HS 12/28/18 Clopidogrel Bisulfate [Plavix] 75 mg PO DAILY 12/28/18 Dexlansoprazole [Dexilant] 60 mg PO DAILY 12/28/18 Empagliflozin [Jardiance] 25 mg PO DAILY 12/28/18 Folic Acid 1 mg PO DAILY 12/28/18 Glimepiride 1 mg PO 12/28/18 Hydroxyurea 500 mg PO DAILY 12/28/18 Levothyroxine [Synthroid -] 75 mcg PO DAILY 12/28/18 Losartan Potassium 25 mg PO DAILY 12/28/18 Lubiprostone [Amitiza] 8 mcg PO DAILY 12/28/18 Magnesium Oxide [Magnesium] 500 mg PO DAILY 12/28/18 Metformin HCl [Glucophage] 500 mg PO DAILY 12/28/18 Montelukast Sodium [Singulair] 10 mg PO DAILY 12/28/18 Prednisone 5 mg PO DAILY 12/28/18 Varicella-Zoster Ge Vac,2 of 2 [Shingrix Ge Antigen Component] 50 mcg IM ASDIR 12/28/18 Vitamin D - 1,000 units PO DAILY 12/28/18
== END 2019-01-02 14:51 | disposition home or self-care (01) | DRG 378 ==
LOC: JER 10:22 → JERBED 13:48 → J8W 15:42
PROVIDERS: ADMIT Family Medicine; ATTEND Family Medicine
DX: K57.91 Diverticulosis of intestine, part unspecified, without perforation or abscess with bleeding (principal); Z68.1 Body mass index [BMI] 19.9 or less, adult; E78.5 Hyperlipidemia, unspecified; I25.10 Atherosclerotic heart disease of native coronary artery without angina pectoris; E11.9 Type 2 diabetes mellitus without complications; R55 Syncope and collapse; I95.9 Hypotension, unspecified; I10 Essential (primary) hypertension; E03.9 Hypothyroidism, unspecified; Z98.61 Coronary angioplasty status; K59.00 Constipation, unspecified; R63.4 Abnormal weight loss; D73.9 Disease of spleen, unspecified; D64.9 Anemia, unspecified
CPT/HCPCS: 36415; 71045-TC-FY; 74174-TC; 80048; 80053; 81003; 82105; 82272; 82378; 82728; 82962; 83540; 83550; 83735; 84100; 85025; 85027; 85044; 85610; 86301; 86304; 86850; 86900; 86901; 86922; 87086; 93005; 93010; 97116-GP; 97161-GP; 99284-25; J7030; J8999

== ENCOUNTER 2020-08-23 13:14 | Inpatient (IN) | payer OTHER, MEDICARE ==
[2020-08-23] MEDS ORDERED: ACETAMINOPHEN 1000 MG/100 ML VIAL (NON FORMULARY) IVPB ONE (15:54)
[2020-08-23] MEDS ORDERED: ACETAMINOPHEN INJECTION 100 ML IVPB ONE (16:25)
[2020-08-23 17:38] LABS: EPI CELLS >36 /uL (0-25.1); HYALINE CASTS 61 /uL (0-3.1); URINE APPEARANCE TURBID; URINE BACTERIA >9,000 /uL (0-1359); URINE BILIRUBIN 2+ (NEGATIVE); URINE COLOR ORANGE; URINE GLUCOSE (UA) NEGATIVE (NEGATIVE); URINE KETONE NEGATIVE (NEGATIVE); URINE LEUK ESTERASE 3+ (NEGATIVE); URINE NITRITE POSITIVE (NEGATIVE); URINE PROTEIN 3+ (NEGATIVE); URINE WBC 11810 /uL (0-25.8)
[2020-08-23 17:45] LABS: BASO % 1.5 % (0-2.0); EOS % 2.1 % (0-4.5); HEMATOCRIT 38.5 % (32.4-45.2); HEMOGLOBIN 12.9 GM/dL (10.7-15.3); INR 1.08 (0.83-1.09); LYMPH % 9.7 % (8-40); MCH 34.2 pg (25.7-33.7); MCHC 33.5 g/dl (32.0-36.0); MEAN CELL VOLUME 101.9 fl (80-96); MEAN PLT VOLUME 7.3 fl (7.5-11.1); MONO % 4.5 % (3.8-10.2); NEUT % 82.2 % (42.8-82.8); PLATELET COUNT 855 K/MM3 (134-434); RBC 3.78 M/mm3 (3.60-5.2); RDW 18.3 % (11.6-15.6); WHITE BLOOD COUNT 10.2 K/mm3 (4.0-10.0)
[2020-08-23 17:47] LABS: ACTIVATED PTT 30.7 SECONDS (25.2-36.5)
[2020-08-23 17:53] LABS: POTASSIUM 4.8 mmol/L (3.5-5.1)
[2020-08-23 17:56] LABS: ALBUMIN 3.4 g/dl (3.4-5.0); BLOOD UREA NITROGEN 25.6 mg/dL (7-18)
[2020-08-23 17:59] LABS: CREATININE 1.6 mg/dL (0.55-1.3)
[2020-08-23 18:00] LABS: BILIRUBIN,TOTAL 0.3 mg/dL (0.2-1)
[2020-08-23 18:01] LABS: TOT PROT 7.9 g/dl (6.4-8.2)
[2020-08-23 18:06] LABS: URINE RBC 8798.4 /uL (0-23.9); YEAST NONE SEEN (NEGATIVE)
[2020-08-23] MEDS ORDERED: CEFTRIAXONE 1,000 MG in DEXTROSE 5%-WATER - 50 ML IVPB ONE (18:18)
[2020-08-23] MEDS ORDERED: SODIUM CHLORIDE 0.9% 500 ML INFUS.BAG IV ONE (18:25)
[2020-08-23] MEDS ORDERED: CEFTRIAXONE 1 GM/50 ML BAG ONE (20:18)
[2020-08-23] MEDS ORDERED: SODIUM CHLORIDE 1,000 ML IV SCH (21:45)
[2020-08-23] MEDS: HEPARIN NA (PORCINE) 5,000 UNITS/ML 1ML VIAL SQ SCH (23:15)
[2020-08-24] MEDS: LEVOTHYROXINE NA 75 MCG TABLET (FP) PO SCH (05:59)
[2020-08-24 07:52] LABS: HEMATOCRIT 36.6 % (32.4-45.2); MCHC 32.7 g/dl (32.0-36.0); MEAN CELL VOLUME 101.2 fl (80-96); MEAN PLT VOLUME 7.1 fl (7.5-11.1); PLATELET COUNT 779 K/MM3 (134-434); RBC 3.62 M/mm3 (3.60-5.2); RDW 18.1 % (11.6-15.6); WHITE BLOOD COUNT 8.4 K/mm3 (4.0-10.0)
[2020-08-24 07:58] LABS: POTASSIUM 4.6 mmol/L (3.5-5.1)
[2020-08-24 07:59] LABS: CALCIUM 9.5 mg/dL (8.5-10.1)
[2020-08-24 08:00] LABS: BLOOD UREA NITROGEN 22.6 mg/dL (7-18)
[2020-08-24 08:03] LABS: CREATININE 1.3 mg/dL (0.55-1.3)
[2020-08-24] MEDS ORDERED: cefTRIAXone SODIUM 1 GM VIAL ONE (08:43)
[2020-08-24] MEDS ORDERED: DEXTROSE 5%-WATER - 50 ML IVPB ONE (08:43)
[2020-08-24] MEDS: HYDROXYUREA 500 MG CAPSULE PO SCH (09:12)
[2020-08-24] MEDS: FERROUS GLUCONATE 324 MG TAB (FP) PO SCH ×3 (09:12→16:45)
[2020-08-24] MEDS: ASPIRIN COATED 81 MG TABLET.EC PO SCH (09:12)
[2020-08-24] MEDS: amLODIPine BESYLATE 10 MG TABLET (FP) PO SCH (09:13)
[2020-08-24] MEDS: PANTOPRAZOLE 40 MG TABLET PO SCH (09:13)
[2020-08-24] MEDS: CLOPIDOGREL BISULFATE 75 MG TABLET (FP) PO SCH (09:13)
[2020-08-24] MEDS: HEPARIN NA (PORCINE) 5,000 UNITS/ML 1ML VIAL SQ SCH ×2 (09:15→21:53)
[2020-08-24] MEDS: FOLIC ACID 1 MG TABLET (FP) PO SCH (09:15)
[2020-08-24] MEDS: POLYETHYLENE GLYCOL 3350 119 GM BTL PO SCH (09:16)
[2020-08-24] MEDS: CEFTRIAXONE 1 GM in DEXTROSE 5%-WATER - 50 ML IVPB SCH (09:17)
[2020-08-24] MEDS: CHOLECALCIFEROL (VIT D3) 1,000 UNIT (25 MCG) TABLET PO SCH (09:17)
[2020-08-24] MEDS ORDERED: CLOPIDOGREL BISULFATE 75 MG TABLET (FP) PO SCH (10:00)
[2020-08-24] MEDS ORDERED: VITAMIN D PO SCH (10:00)
[2020-08-24] MEDS: INSULIN SLIDING SCALE (NOVOLOG) 1 VIAL SQ SCH ×2 (11:44→16:18)
[2020-08-24] MEDS: SODIUM CHLORIDE 1,000 ML IV SCH (12:13)
[2020-08-24] MEDS: MULTIVITAMINS (DAILY MVI) TABLET (FP) PO SCH (12:14)
[2020-08-24] MEDS: ACETAMINOPHEN 325 MG TABLET (FP) PO PRN (15:20)
[2020-08-24] MEDS: ATORVASTATIN CA 10 MG TABLET (FP) PO SCH (21:56)
[2020-08-25] MEDS: LEVOTHYROXINE NA 75 MCG TABLET (FP) PO SCH (06:18)
[2020-08-25] MEDS: ACETAMINOPHEN 325 MG TABLET (FP) PO PRN (06:25)
[2020-08-25] MEDS: INSULIN SLIDING SCALE (NOVOLOG) 1 VIAL SQ SCH ×3 (06:29→16:51)
[2020-08-25 07:31] LABS: BASO % 1.2 % (0-2.0); EOS % 3.8 % (0-4.5); HEMATOCRIT 34.9 % (32.4-45.2); HEMOGLOBIN 11.5 GM/dL (10.7-15.3); MCH 33.2 pg (25.7-33.7); MEAN CELL VOLUME 100.7 fl (80-96); MONO % 3.8 % (3.8-10.2); NEUT % 78.2 % (42.8-82.8); PLATELET COUNT 767 K/MM3 (134-434); RBC 3.47 M/mm3 (3.60-5.2)
[2020-08-25 07:56] LABS: POTASSIUM 4.7 mmol/L (3.5-5.1)
[2020-08-25 08:09] LABS: ALBUMIN 3.1 g/dl (3.4-5.0); CALCIUM 9.6 mg/dL (8.5-10.1)
[2020-08-25 08:10] LABS: BLOOD UREA NITROGEN 19.7 mg/dL (7-18); MAGNESIUM 2.1 mg/dL (1.8-2.4)
[2020-08-25 08:13] LABS: CREATININE 1.3 mg/dL (0.55-1.3)
[2020-08-25 08:14] LABS: BILIRUBIN,TOTAL 0.4 mg/dL (0.2-1); PHOSPHOROUS 3.6 mg/dL (2.5-4.9); TOT PROT 6.9 g/dl (6.4-8.2)
[2020-08-25] MEDS ORDERED: cefTRIAXone SODIUM 1 GM VIAL ONE (08:55)
[2020-08-25] MEDS ORDERED: DEXTROSE 5%-WATER - 50 ML IVPB ONE (08:56)
[2020-08-25] MEDS: CEFTRIAXONE 1 GM in DEXTROSE 5%-WATER - 50 ML IVPB SCH (09:09)
[2020-08-25] MEDS: HEPARIN NA (PORCINE) 5,000 UNITS/ML 1ML VIAL SQ SCH ×2 (09:11→21:28)
[2020-08-25] MEDS: FERROUS GLUCONATE 324 MG TAB (FP) PO SCH ×3 (09:11→17:02)
[2020-08-25] MEDS: PANTOPRAZOLE 40 MG TABLET PO SCH (09:11)
[2020-08-25] MEDS: ASPIRIN COATED 81 MG TABLET.EC PO SCH (09:12)
[2020-08-25] MEDS: CLOPIDOGREL BISULFATE 75 MG TABLET (FP) PO SCH (09:12)
[2020-08-25] MEDS: CHOLECALCIFEROL (VIT D3) 1,000 UNIT (25 MCG) TABLET PO SCH (09:12)
[2020-08-25] MEDS: MULTIVITAMINS (DAILY MVI) TABLET (FP) PO SCH (09:12)
[2020-08-25] MEDS: HYDROXYUREA 500 MG CAPSULE PO SCH (09:12)
[2020-08-25] MEDS: FOLIC ACID 1 MG TABLET (FP) PO SCH (09:13)
[2020-08-25] MEDS: amLODIPine BESYLATE 10 MG TABLET (FP) PO SCH (09:13)
[2020-08-25] MEDS: POLYETHYLENE GLYCOL 3350 119 GM BTL PO SCH (10:30)
[2020-08-25] MEDS: SODIUM CHLORIDE 1,000 ML IV SCH (12:14)
[2020-08-25 14:44] VITALS: BMI 19.5
[2020-08-25] MEDS: ATORVASTATIN CA 10 MG TABLET (FP) PO SCH (21:28)
[2020-08-26] MEDS: INSULIN SLIDING SCALE (NOVOLOG) 1 VIAL SQ SCH ×3 (05:59→17:41)
[2020-08-26] MEDS: LEVOTHYROXINE NA 75 MCG TABLET (FP) PO SCH (05:59)
[2020-08-26 06:32] LABS: BASO % 1.3 % (0-2.0); EOS % 3.4 % (0-4.5); HEMOGLOBIN 11.7 GM/dL (10.7-15.3); LYMPH % 12.3 % (8-40); MCH 32.7 pg (25.7-33.7); MCHC 32.6 g/dl (32.0-36.0); MEAN CELL VOLUME 100.2 fl (80-96); MEAN PLT VOLUME 6.8 fl (7.5-11.1); MONO % 4.8 % (3.8-10.2); NEUT % 78.2 % (42.8-82.8); PLATELET COUNT 679 K/MM3 (134-434); RBC 3.59 M/mm3 (3.60-5.2); RDW 18.1 % (11.6-15.6); WHITE BLOOD COUNT 7.4 K/mm3 (4.0-10.0)
[2020-08-26 06:44] LABS: POTASSIUM 4.4 mmol/L (3.5-5.1)
[2020-08-26 06:50] LABS: CALCIUM 9.6 mg/dL (8.5-10.1)
[2020-08-26 06:51] LABS: BLOOD UREA NITROGEN 18.8 mg/dL (7-18); MAGNESIUM 1.9 mg/dL (1.8-2.4)
[2020-08-26 06:55] LABS: BILIRUBIN,TOTAL 0.3 mg/dL (0.2-1); CREATININE 1.3 mg/dL (0.55-1.3); PHOSPHOROUS 3.8 mg/dL (2.5-4.9); TOT PROT 6.8 g/dl (6.4-8.2)
[2020-08-26] MEDS: FERROUS GLUCONATE 324 MG TAB (FP) PO SCH ×3 (07:40→17:11)
[2020-08-26] MEDS: ACETAMINOPHEN 325 MG TABLET (FP) PO PRN ×3 (07:41→23:25)
[2020-08-26] MEDS: SODIUM CHLORIDE 1,000 ML IV SCH ×2 (07:44→12:05)
[2020-08-26] MEDS ORDERED: DEXTROSE 5%-WATER - 50 ML IVPB ONE (09:28)
[2020-08-26] MEDS ORDERED: cefTRIAXone SODIUM 1 GM VIAL ONE (09:28)
[2020-08-26] MEDS: CEFTRIAXONE 1 GM in DEXTROSE 5%-WATER - 50 ML IVPB SCH (09:31)
[2020-08-26] MEDS: PANTOPRAZOLE 40 MG TABLET PO SCH (09:31)
[2020-08-26] MEDS: MULTIVITAMINS (DAILY MVI) TABLET (FP) PO SCH (09:31)
[2020-08-26] MEDS: amLODIPine BESYLATE 10 MG TABLET (FP) PO SCH (09:31)
[2020-08-26] MEDS: HYDROXYUREA 500 MG CAPSULE PO SCH (09:31)
[2020-08-26] MEDS: HEPARIN NA (PORCINE) 5,000 UNITS/ML 1ML VIAL SQ SCH ×2 (09:32→21:11)
[2020-08-26] MEDS: FOLIC ACID 1 MG TABLET (FP) PO SCH (09:32)
[2020-08-26] MEDS: CHOLECALCIFEROL (VIT D3) 1,000 UNIT (25 MCG) TABLET PO SCH (09:33)
[2020-08-26] MEDS: POLYETHYLENE GLYCOL 3350 119 GM BTL PO SCH (09:36)
[2020-08-26] MEDS: ATORVASTATIN CA 10 MG TABLET (FP) PO SCH (21:11)
[2020-08-27] MEDS: LEVOTHYROXINE NA 75 MCG TABLET (FP) PO SCH (06:09)
[2020-08-27] MEDS: INSULIN SLIDING SCALE (NOVOLOG) 1 VIAL SQ SCH ×3 (06:09→16:39)
[2020-08-27] MEDS ORDERED: DEXTROSE 5%-WATER - 50 ML IVPB ONE (08:27)
[2020-08-27] MEDS ORDERED: cefTRIAXone SODIUM 1 GM VIAL ONE (08:27)
[2020-08-27] MEDS: FERROUS GLUCONATE 324 MG TAB (FP) PO SCH ×3 (08:29→16:39)
[2020-08-27] MEDS: MULTIVITAMINS (DAILY MVI) TABLET (FP) PO SCH (09:07)
[2020-08-27] MEDS: HYDROXYUREA 500 MG CAPSULE PO SCH (09:07)
[2020-08-27] MEDS: PANTOPRAZOLE 40 MG TABLET PO SCH (09:07)
[2020-08-27] MEDS: FOLIC ACID 1 MG TABLET (FP) PO SCH (09:07)
[2020-08-27] MEDS: HEPARIN NA (PORCINE) 5,000 UNITS/ML 1ML VIAL SQ SCH ×2 (09:07→21:03)
[2020-08-27] MEDS: CHOLECALCIFEROL (VIT D3) 1,000 UNIT (25 MCG) TABLET PO SCH (09:08)
[2020-08-27] MEDS: amLODIPine BESYLATE 10 MG TABLET (FP) PO SCH (09:08)
[2020-08-27] MEDS: POLYETHYLENE GLYCOL 3350 119 GM BTL PO SCH (09:10)
[2020-08-27] MEDS: SODIUM CHLORIDE 1,000 ML IV SCH (11:00)
[2020-08-27] MEDS: ACETAMINOPHEN 325 MG TABLET (FP) PO PRN ×2 (12:02→21:06)
[2020-08-27] MEDS ORDERED: INSULIN (NOVOLOG) ASPART 100 UNITS/ML 10ML VIAL ONE (20:10)
[2020-08-27] MEDS: ATORVASTATIN CA 10 MG TABLET (FP) PO SCH (21:06)
[2020-08-28] MEDS: LEVOTHYROXINE NA 75 MCG TABLET (FP) PO SCH (06:03)
[2020-08-28] MEDS: ACETAMINOPHEN 325 MG TABLET (FP) PO PRN ×3 (06:03→21:01)
[2020-08-28] MEDS: INSULIN SLIDING SCALE (NOVOLOG) 1 VIAL SQ SCH ×3 (06:40→16:55)
[2020-08-28] MEDS: SODIUM CHLORIDE 1,000 ML IV SCH ×2 (09:06→13:19)
[2020-08-28] MEDS: FERROUS GLUCONATE 324 MG TAB (FP) PO SCH ×3 (09:29→18:49)
[2020-08-28] MEDS: FOLIC ACID 1 MG TABLET (FP) PO SCH (09:30)
[2020-08-28] MEDS: HEPARIN NA (PORCINE) 5,000 UNITS/ML 1ML VIAL SQ SCH ×2 (09:30→21:01)
[2020-08-28] MEDS: HYDROXYUREA 500 MG CAPSULE PO SCH (09:30)
[2020-08-28] MEDS: amLODIPine BESYLATE 10 MG TABLET (FP) PO SCH (09:31)
[2020-08-28] MEDS: CHOLECALCIFEROL (VIT D3) 1,000 UNIT (25 MCG) TABLET PO SCH (09:31)
[2020-08-28] MEDS: MULTIVITAMINS (DAILY MVI) TABLET (FP) PO SCH (09:31)
[2020-08-28] MEDS: PANTOPRAZOLE 40 MG TABLET PO SCH (09:31)
[2020-08-28] MEDS: POLYETHYLENE GLYCOL 3350 119 GM BTL PO SCH (14:26)
[2020-08-28 21:00] VITALS: PULSE 67
[2020-08-28] MEDS: ATORVASTATIN CA 10 MG TABLET (FP) PO SCH (21:01)
[2020-08-29] MEDS: SODIUM CHLORIDE 1,000 ML IV SCH ×2 (06:31→13:04)
[2020-08-29] MEDS: LEVOTHYROXINE NA 75 MCG TABLET (FP) PO SCH (06:33)
[2020-08-29] MEDS: INSULIN SLIDING SCALE (NOVOLOG) 1 VIAL SQ SCH ×2 (06:37→13:04)
[2020-08-29 06:38] VITALS: BP 153/79; TEMP 97.9
[2020-08-29 07:59] LABS: POTASSIUM 4.1 mmol/L (3.5-5.1)
[2020-08-29 08:07] LABS: CALCIUM 9.6 mg/dL (8.5-10.1)
[2020-08-29 08:11] LABS: CREATININE 1.2 mg/dL (0.55-1.3)
[2020-08-29 08:15] LABS: HEMATOCRIT 36.1 % (32.4-45.2); HEMOGLOBIN 11.9 GM/dL (10.7-15.3); MCH 33.3 pg (25.7-33.7); MCHC 32.8 g/dl (32.0-36.0); MEAN CELL VOLUME 101.6 fl (80-96); MEAN PLT VOLUME 7.3 fl (7.5-11.1); PLATELET COUNT 377 K/MM3 (134-434); RBC 3.56 M/mm3 (3.60-5.2); RDW 19.1 % (11.6-15.6)
[2020-08-29] MEDS: FERROUS GLUCONATE 324 MG TAB (FP) PO SCH ×2 (09:54→13:05)
[2020-08-29] MEDS: HEPARIN NA (PORCINE) 5,000 UNITS/ML 1ML VIAL SQ SCH (09:54)
[2020-08-29] MEDS: FOLIC ACID 1 MG TABLET (FP) PO SCH (09:54)
[2020-08-29] MEDS: amLODIPine BESYLATE 10 MG TABLET (FP) PO SCH (09:55)
[2020-08-29] MEDS: PANTOPRAZOLE 40 MG TABLET PO SCH (09:55)
[2020-08-29] MEDS: MULTIVITAMINS (DAILY MVI) TABLET (FP) PO SCH (09:55)
[2020-08-29] MEDS: HYDROXYUREA 500 MG CAPSULE PO SCH (09:55)
[2020-08-29] MEDS: CHOLECALCIFEROL (VIT D3) 1,000 UNIT (25 MCG) TABLET PO SCH (09:56)
[2020-08-29] MEDS: POLYETHYLENE GLYCOL 3350 119 GM BTL PO SCH (13:04)
== END 2020-08-29 15:00 | disposition home or self-care (01) | DRG 689 ==
LOC: JER 13:14 → JERBED 21:25 → J7W 08-24 00:32
PROVIDERS: ADMIT Hospitalist; ATTEND Family Medicine
DX: N39.0 Urinary tract infection, site not specified (principal); E43 Unspecified severe protein-calorie malnutrition; N17.9 Acute kidney failure, unspecified; Z68.1 Body mass index [BMI] 19.9 or less, adult; N32.1 Vesicointestinal fistula; R31.9 Hematuria, unspecified; E78.5 Hyperlipidemia, unspecified; E03.9 Hypothyroidism, unspecified; M06.9 Rheumatoid arthritis, unspecified; D45 Polycythemia vera; I25.10 Atherosclerotic heart disease of native coronary artery without angina pectoris; D73.89 Other diseases of spleen; K76.9 Liver disease, unspecified; R91.1 Solitary pulmonary nodule; I12.9 Hypertensive chronic kidney disease with stage 1 through stage 4 chronic kidney disease, or unspecified chronic kidney disease; E11.22 Type 2 diabetes mellitus with diabetic chronic kidney disease; N18.9 Chronic kidney disease, unspecified; Z95.5 Presence of coronary angioplasty implant and graft
CPT/HCPCS: 36415; 71250-TC; 74178-TC; 80048; 80053; 81003; 82378; 82565; 82962; 83036; 83735; 84100; 84156; 84300; 84443; 84540; 85025; 85027; 85610; 85730; 87086; 87205; 93005; 93010; 97116-GP; 97161-GP; 99285-25; C9803; J0131; J1644; J8999; U0003

== ENCOUNTER 2020-12-03 06:21 | Inpatient (IN) | payer OTHER, MEDICARE ==
[2020-12-02 14:22] VITALS: BMI 19.5
[~2020-12-03 06:21] MED LIST: ERTAPENEM SODIUM 1 GM in SODIUM CHLORIDE 50 ML IVPB ONE
[2020-12-03] MEDS ORDERED: ERTAPENEM SODIUM 1 GM VIAL ONE (06:38)
[2020-12-03] MEDS: ALVIMOPAN 12 MG CAP PO SCH ×2 (06:51→20:52)
[2020-12-03] MEDS ORDERED: LIDOCAINE HCL/PF 2% SDV 5ML VIAL ONE (07:16)
[2020-12-03] MEDS ORDERED: ROCURONIUM BROMIDE 100 MG/10 ML VIAL ONE ×2 (07:16→10:13)
[2020-12-03] MEDS ORDERED: SUCCINYLCHOLINE CHLORIDE 200 MG/10 ML SYRINGE ONE (07:16)
[2020-12-03] MEDS ORDERED: PROPOFOL 20 ML ONE ×2 (07:16)
[2020-12-03] MEDS ORDERED: PHENYLEPHRINE HCL 10 MG/1 ML SINGLE DOSE VIAL ONE (07:19)
[2020-12-03] MEDS ORDERED: ERTAPENEM SODIUM 1 GM VIAL IVPB ONE (08:25)
[2020-12-03] MEDS ORDERED: HYDROmorphone HCl 2 MG/ML VIAL ONE (08:39)
[2020-12-03] MEDS ORDERED: ePHEDrine SULFATE 50 MG/1 ML AMPULE ONE ×2 (08:52→12:30)
[2020-12-03] MEDS ORDERED: SODIUM CHLORIDE 0.9% P/F 10 ML VIAL IJ ONE ×2 (08:52→10:17)
[2020-12-03] MEDS ORDERED: BUPIVACAINE HCL/PF 0.5% (5 MG/ML) 30 ML VIAL IJ ONE (09:18)
[2020-12-03] MEDS ORDERED: ONDANSETRON 4 MG/2 ML VIAL ONE (10:17)
[2020-12-03] MEDS ORDERED: GLYCOPYRROLATE 0.2 MG/1 ML VIAL ONE ×2 (12:09)
[2020-12-03] MEDS ORDERED: NEOSTIGMINE METHYLSULFATE 0.5 MG/ML - 10 ML MDV ONE (12:09)
[2020-12-03] MEDS ORDERED: HYDROCORTISONE SOD SUCCINATE 100 MG/2 ML VIAL ONE (12:30)
[2020-12-03] MEDS ORDERED: METHYLENE BLUE 50 MG/10 ML AMPUL ONE (12:52)
[2020-12-03] MEDS ORDERED: ACETAMINOPHEN INJECTION 100 ML IVPB ONE (16:50)
[2020-12-03] MEDS: ACETAMINOPHEN 1000 MG/100 ML VIAL (NON FORMULARY) IVPB PRN (17:00)
[2020-12-03] MEDS ORDERED: ONDANSETRON 4 MG/2 ML VIAL IVPUSH PRN (17:18)
[2020-12-03] MEDS ORDERED: CEFAZOLIN 2 GM/D5W 2 GM/50 ML ML IVPB SCH (18:00)
[2020-12-03] MEDS: SODIUM CHLORIDE 1,000 ML IV SCH (18:00)
[2020-12-03] MEDS: INSULIN SLIDING SCALE (NOVOLOG) 1 VIAL SQ SCH ×2 (20:51→22:21)
[2020-12-03] MEDS: MORPHINE SULFATE 2 MG/ML VIAL IVPUSH PRN (21:01)
[2020-12-03] MEDS: HEPARIN NA (PORCINE) 5,000 UNITS/ML 1ML VIAL SQ SCH (22:24)
[2020-12-04] MEDS: HEPARIN NA (PORCINE) 5,000 UNITS/ML 1ML VIAL SQ SCH ×3 (06:42→21:27)
[2020-12-04] MEDS: INSULIN SLIDING SCALE (NOVOLOG) 1 VIAL SQ SCH ×4 (06:42→21:38)
[2020-12-04] MEDS: ACETAMINOPHEN 1000 MG/100 ML VIAL (NON FORMULARY) IVPB PRN (07:06)
[2020-12-04] MEDS ORDERED: LOSARTAN POTASSIUM 25 MG TABLET PO ONE (08:16)
[2020-12-04] MEDS: AMOX TR/POT CLAV 875MG/125MG TABLETS (FP) PO SCH ×2 (08:34→17:06)
[2020-12-04] MEDS: amLODIPine BESYLATE 5 MG TABLET (FP) PO SCH (09:23)
[2020-12-04] MEDS: HYDROXYUREA 500 MG CAPSULE PO SCH (09:23)
[2020-12-04] MEDS: PANTOPRAZOLE 40 MG TABLET PO SCH ×2 (09:23→21:27)
[2020-12-04] MEDS: ALVIMOPAN 12 MG CAP PO SCH ×2 (09:24→21:29)
[2020-12-04 09:56] LABS: BASO % 0.2 % (0-2.0); EOS % 0.4 % (0-4.5); HEMATOCRIT 27.7 % (32.4-45.2); HEMOGLOBIN 9.2 GM/dL (10.7-15.3); LYMPH % 7.3 % (8-40); MCH 30.2 pg (25.7-33.7); MCHC 33.4 g/dl (32.0-36.0); MEAN CELL VOLUME 90.5 fl (80-96); MEAN PLT VOLUME 7.1 fl (7.5-11.1); MONO % 5.6 % (3.8-10.2); NEUT % 86.5 % (42.8-82.8); PLATELET COUNT 277 K/MM3 (134-434); RBC 3.06 M/mm3 (3.60-5.2); RDW 23.2 % (11.6-15.6); WHITE BLOOD COUNT 5.2 K/mm3 (4.0-10.0)
[2020-12-04] MEDS ORDERED: PANTOPRAZOLE SODIUM 40 MG VIAL IVPUSH SCH (10:00)
[2020-12-04] MEDS ORDERED: ENOXAPARIN NA (PORCINE) 40 MG/0.4 ML DISP.SYRIN SQ SCH (10:00)
[2020-12-04 10:27] LABS: BLOOD UREA NITROGEN 20.3 mg/dL (7-18); CALCIUM 8.1 mg/dL (8.5-10.1)
[2020-12-04 10:31] LABS: CREATININE 1.1 mg/dL (0.55-1.3)
[2020-12-04 10:38] LABS: POTASSIUM 3.4 mmol/L (3.5-5.1)
[2020-12-04 12:19] LABS: ANISOCYTOSIS 2+; MACROCYTOSIS 2+; OVALOCYTE 1+; PLATELET ESTIMATE NORMAL
[2020-12-04] MEDS ORDERED: PT OWN MED DRAWER 7, Y5N ONE ×3 (13:02→21:04)
[2020-12-04] MEDS: predniSONE 1 MG TABLET (FP) PO SCH ×2 (13:04→21:28)
[2020-12-04] MEDS: POTASSIUM CHLORIDE TABS 10 MEQ TABLET.ER (FP) PO SCH (14:35)
[2020-12-04] MEDS: MORPHINE SULFATE 2 MG/ML VIAL IVPUSH PRN ×2 (14:38→21:42)
[2020-12-04] MEDS: metFORMIN HCL 500 MG TABLET (FP) PO SCH (15:58)
[2020-12-04] MEDS: SODIUM CHLORIDE 1,000 ML IV SCH (15:59)
[2020-12-04] MEDS ORDERED: SODIUM CHLORIDE 0.45%/POT 20 MEQ/1,000 ML INFUS.BAG IV SCH (17:15)
[2020-12-04] MEDS ORDERED: POTASSIUM CHLORIDE TABS 20 MEQ TABLET.ER (FP) PO ONE (17:16)
[2020-12-04] MEDS: D5-1/2NS+20 MEQ KCL - 20 MEQ/1,000 ML INFUS.BAG IV SCH (17:50)
[2020-12-04] MEDS: MONTELUKAST NA 10 MG TABLET PO SCH (21:27)
[2020-12-05] MEDS: HEPARIN NA (PORCINE) 5,000 UNITS/ML 1ML VIAL SQ SCH ×3 (05:02→21:09)
[2020-12-05] MEDS: predniSONE 1 MG TABLET (FP) PO SCH ×3 (05:02→21:11)
[2020-12-05] MEDS: ACETAMINOPHEN 325 MG TABLET (FP) PO PRN ×2 (05:03→20:52)
[2020-12-05] MEDS: metFORMIN HCL 500 MG TABLET (FP) PO SCH ×2 (06:11→17:23)
[2020-12-05] MEDS: LEVOTHYROXINE NA 75 MCG TABLET (FP) PO SCH (06:11)
[2020-12-05] MEDS: INSULIN SLIDING SCALE (NOVOLOG) 1 VIAL SQ SCH ×4 (06:22→21:03)
[2020-12-05] MEDS: D5-1/2NS+20 MEQ KCL - 20 MEQ/1,000 ML INFUS.BAG IV SCH ×2 (06:46→17:24)
[2020-12-05] MEDS: AMOX TR/POT CLAV 875MG/125MG TABLETS (FP) PO SCH ×2 (08:34→17:23)
[2020-12-05] MEDS: HYDROXYUREA 500 MG CAPSULE PO SCH (09:11)
[2020-12-05] MEDS: amLODIPine BESYLATE 5 MG TABLET (FP) PO SCH (09:11)
[2020-12-05] MEDS: PANTOPRAZOLE 40 MG TABLET PO SCH ×2 (09:11→21:10)
[2020-12-05] MEDS: POTASSIUM CHLORIDE TABS 10 MEQ TABLET.ER (FP) PO SCH (09:11)
[2020-12-05] MEDS: ALVIMOPAN 12 MG CAP PO SCH ×2 (09:12→21:10)
[2020-12-05 09:42] LABS: HEMATOCRIT 28.6 % (32.4-45.2); HEMOGLOBIN 9.4 GM/dL (10.7-15.3); MCH 29.9 pg (25.7-33.7); MCHC 32.8 g/dl (32.0-36.0); MEAN CELL VOLUME 91.2 fl (80-96); MEAN PLT VOLUME 7.5 fl (7.5-11.1); PLATELET COUNT 249 K/MM3 (134-434); RBC 3.13 M/mm3 (3.60-5.2); RDW 23.7 % (11.6-15.6); WHITE BLOOD COUNT 7.2 K/mm3 (4.0-10.0)
[2020-12-05 09:58] LABS: POTASSIUM 3.5 mmol/L (3.5-5.1)
[2020-12-05 10:09] LABS: ALBUMIN 2.3 g/dl (3.4-5.0); BLOOD UREA NITROGEN 9.8 mg/dL (7-18); CALCIUM 8.3 mg/dL (8.5-10.1); MAGNESIUM 1.4 mg/dL (1.8-2.4)
[2020-12-05 10:12] LABS: CREATININE 0.9 mg/dL (0.55-1.3)
[2020-12-05 10:13] LABS: TOT PROT 5.4 g/dl (6.4-8.2)
[2020-12-05] MEDS ORDERED: MAGNESIUM SULF 50% (8.12 MEQ/2 ML-1 GM VIAL) IVPB ONE (10:28)
[2020-12-05 11:21] LABS: PHOSPHOROUS 1.1 mg/dL (2.5-4.9)
[2020-12-05] MEDS ORDERED: POTASSIUM PHOSPHATE 15 MM in SODIUM CHLORIDE 250 ML IVPB ONE (14:00)
[2020-12-05] MEDS ORDERED: PT OWN MED DRAWER 7, Y5N ONE ×3 (14:53→20:30)
[2020-12-05] MEDS: SODIUM CHLORIDE 1,000 ML IV SCH (17:23)
[2020-12-05] MEDS: MORPHINE SULFATE 2 MG/ML VIAL IVPUSH PRN (17:27)
[2020-12-05] MEDS: NAPH,MB-DB/K PH,MBDB POWDER PACKET PO SCH (21:10)
[2020-12-05] MEDS: MONTELUKAST NA 10 MG TABLET PO SCH (21:10)
[2020-12-06] MEDS: D5-1/2NS+20 MEQ KCL - 20 MEQ/1,000 ML INFUS.BAG IV SCH ×3 (03:08→21:37)
[2020-12-06] MEDS ORDERED: PT OWN MED DRAWER 7, Y5N ONE ×4 (04:40→20:42)
[2020-12-06] MEDS: NAPH,MB-DB/K PH,MBDB POWDER PACKET PO SCH ×3 (06:04→21:28)
[2020-12-06] MEDS: INSULIN SLIDING SCALE (NOVOLOG) 1 VIAL SQ SCH ×4 (06:04→21:26)
[2020-12-06] MEDS: metFORMIN HCL 500 MG TABLET (FP) PO SCH ×2 (06:04→17:00)
[2020-12-06] MEDS: LEVOTHYROXINE NA 75 MCG TABLET (FP) PO SCH (06:05)
[2020-12-06] MEDS: HEPARIN NA (PORCINE) 5,000 UNITS/ML 1ML VIAL SQ SCH ×3 (06:05→21:28)
[2020-12-06] MEDS: predniSONE 1 MG TABLET (FP) PO SCH ×3 (06:06→21:28)
[2020-12-06] MEDS ORDERED: FOLIC ACID 5 MG/1 ML SQ ONE (08:11)
[2020-12-06 08:53] LABS: HEMATOCRIT 29.2 % (32.4-45.2); HEMOGLOBIN 9.7 GM/dL (10.7-15.3); MCH 30.2 pg (25.7-33.7); MCHC 33.3 g/dl (32.0-36.0); MEAN CELL VOLUME 90.7 fl (80-96); MEAN PLT VOLUME 7.7 fl (7.5-11.1); PLATELET COUNT 226 K/MM3 (134-434); RBC 3.22 M/mm3 (3.60-5.2); RDW 24.4 % (11.6-15.6); WHITE BLOOD COUNT 5.5 K/mm3 (4.0-10.0)
[2020-12-06 09:10] LABS: POTASSIUM 3.9 mmol/L (3.5-5.1)
[2020-12-06 09:19] LABS: CALCIUM 8.5 mg/dL (8.5-10.1)
[2020-12-06 09:20] LABS: BLOOD UREA NITROGEN 7.1 mg/dL (7-18); MAGNESIUM 1.7 mg/dL (1.8-2.4)
[2020-12-06 09:23] LABS: CREATININE 0.8 mg/dL (0.55-1.3); PHOSPHOROUS 1.8 mg/dL (2.5-4.9)
[2020-12-06] MEDS: amLODIPine BESYLATE 5 MG TABLET (FP) PO SCH (10:17)
[2020-12-06] MEDS: AMOX TR/POT CLAV 875MG/125MG TABLETS (FP) PO SCH ×2 (10:17→17:38)
[2020-12-06] MEDS: HYDROXYUREA 500 MG CAPSULE PO SCH (10:17)
[2020-12-06] MEDS: POTASSIUM CHLORIDE TABS 10 MEQ TABLET.ER (FP) PO SCH (10:17)
[2020-12-06] MEDS: PANTOPRAZOLE 40 MG TABLET PO SCH ×2 (10:19→21:27)
[2020-12-06] MEDS: CYANOCOBALAMIN (VITAMIN B-12) 1000 MCG/1 ML VIAL IM SCH (10:19)
[2020-12-06] MEDS: ACETAMINOPHEN 325 MG TABLET (FP) PO PRN ×3 (10:20→21:26)
[2020-12-06] MEDS ORDERED: oxyCODONE HCL 5 MG TABLET PO PRN (13:48)
[2020-12-06] MEDS ORDERED: MAGNESIUM 1GM/D5W 100ML - 100 ML IVPB IVPB ONE (14:00)
[2020-12-06] MEDS: SODIUM CHLORIDE 1,000 ML IV SCH (17:02)
[2020-12-06] MEDS ORDERED: INSULIN (NOVOLOG) ASPART 100 UNITS/ML 10ML VIAL ONE (20:40)
[2020-12-06] MEDS: MONTELUKAST NA 10 MG TABLET PO SCH (21:27)
[2020-12-07] MEDS ORDERED: PT OWN MED DRAWER 7, Y5N ONE ×5 (05:42→20:22)
[2020-12-07] MEDS: HEPARIN NA (PORCINE) 5,000 UNITS/ML 1ML VIAL SQ SCH ×3 (06:35→21:43)
[2020-12-07] MEDS: INSULIN SLIDING SCALE (NOVOLOG) 1 VIAL SQ SCH ×4 (06:37→21:42)
[2020-12-07] MEDS: predniSONE 1 MG TABLET (FP) PO SCH ×3 (06:38→21:42)
[2020-12-07] MEDS: LEVOTHYROXINE NA 75 MCG TABLET (FP) PO SCH (06:38)
[2020-12-07] MEDS: metFORMIN HCL 500 MG TABLET (FP) PO SCH ×2 (06:38→17:55)
[2020-12-07] MEDS: NAPH,MB-DB/K PH,MBDB POWDER PACKET PO SCH ×3 (06:39→21:43)
[2020-12-07] MEDS: POTASSIUM CHLORIDE TABS 10 MEQ TABLET.ER (FP) PO SCH (09:37)
[2020-12-07] MEDS: CYANOCOBALAMIN (VITAMIN B-12) 1000 MCG/1 ML VIAL IM SCH (09:37)
[2020-12-07] MEDS: ACETAMINOPHEN 325 MG TABLET (FP) PO PRN ×2 (09:38→21:43)
[2020-12-07] MEDS: AMOX TR/POT CLAV 875MG/125MG TABLETS (FP) PO SCH ×2 (09:38→17:56)
[2020-12-07] MEDS: HYDROXYUREA 500 MG CAPSULE PO SCH (09:38)
[2020-12-07] MEDS: amLODIPine BESYLATE 5 MG TABLET (FP) PO SCH (09:38)
[2020-12-07] MEDS: PANTOPRAZOLE 40 MG TABLET PO SCH ×2 (09:38→21:42)
[2020-12-07] MEDS: D5-1/2NS+20 MEQ KCL - 20 MEQ/1,000 ML INFUS.BAG IV SCH (09:42)
[2020-12-07] MEDS ORDERED: INSULIN (NOVOLOG) ASPART 100 UNITS/ML 10ML VIAL ONE (12:50)
[2020-12-07] MEDS: SODIUM CHLORIDE 1,000 ML IV SCH (17:56)
[2020-12-07] MEDS: MONTELUKAST NA 10 MG TABLET PO SCH (21:43)
[2020-12-08] MEDS: metFORMIN HCL 500 MG TABLET (FP) PO SCH ×2 (06:01→17:48)
[2020-12-08] MEDS: LEVOTHYROXINE NA 75 MCG TABLET (FP) PO SCH (06:01)
[2020-12-08] MEDS: NAPH,MB-DB/K PH,MBDB POWDER PACKET PO SCH ×2 (06:01→14:55)
[2020-12-08] MEDS: INSULIN SLIDING SCALE (NOVOLOG) 1 VIAL SQ SCH ×3 (06:01→17:38)
[2020-12-08] MEDS: HEPARIN NA (PORCINE) 5,000 UNITS/ML 1ML VIAL SQ SCH ×2 (06:02→14:53)
[2020-12-08] MEDS: predniSONE 1 MG TABLET (FP) PO SCH ×2 (06:02→14:54)
[2020-12-08] MEDS ORDERED: PT OWN MED DRAWER 7, Y5N ONE (10:00)
[2020-12-08] MEDS: amLODIPine BESYLATE 5 MG TABLET (FP) PO SCH (10:04)
[2020-12-08] MEDS: HYDROXYUREA 500 MG CAPSULE PO SCH (10:04)
[2020-12-08] MEDS: PANTOPRAZOLE 40 MG TABLET PO SCH (10:04)
[2020-12-08] MEDS: AMOX TR/POT CLAV 875MG/125MG TABLETS (FP) PO SCH ×2 (10:04→17:48)
[2020-12-08] MEDS: POTASSIUM CHLORIDE TABS 10 MEQ TABLET.ER (FP) PO SCH (10:04)
[2020-12-08] MEDS: CYANOCOBALAMIN (VITAMIN B-12) 1000 MCG/1 ML VIAL IM SCH (10:04)
[2020-12-08 15:35] VITALS: BP 122/59; PULSE 68; TEMP 97.8
== END 2020-12-08 20:26 | DRG 330 ==
LOC: J2C 06:21 → EDSTATUS 14:53 → J8W 20:23
PROVIDERS: ADMIT Family Medicine; ATTEND Family Medicine
PROC: 0T788ZZ Dilation of Bilateral Ureters, Via Natural or Artificial Opening Endoscopic (ICD-10-PCS; principal; 2020-12-03 08:00)
PROC: 0DBN0ZZ Excision of Sigmoid Colon, Open Approach (ICD-10-PCS; 2020-12-03 08:00)
PROC: 0YQ50ZZ Repair Right Inguinal Region, Open Approach (ICD-10-PCS; 2020-12-03 08:00)
DX: K57.90 Diverticulosis of intestine, part unspecified, without perforation or abscess without bleeding (principal); N32.1 Vesicointestinal fistula; N13.30 Unspecified hydronephrosis; K63.2 Fistula of intestine; I10 Essential (primary) hypertension; E11.9 Type 2 diabetes mellitus without complications; E03.9 Hypothyroidism, unspecified; I25.10 Atherosclerotic heart disease of native coronary artery without angina pectoris; K40.90 Unilateral inguinal hernia, without obstruction or gangrene, not specified as recurrent; E78.5 Hyperlipidemia, unspecified; D45 Polycythemia vera; M06.9 Rheumatoid arthritis, unspecified; Z95.5 Presence of coronary angioplasty implant and graft
CPT/HCPCS: 36415; 74018-TC-FY; 80048; 80053; 82962; 83735; 84100; 85025; 85027; 86922; 94760; 97116-GP; 97161-GP; C9803; J0131; J1644; J8999; Q9968; U0003

== ENCOUNTER 2021-05-10 04:15 | Day surgery (SDC) | payer OTHER, MEDICARE ==
[2021-05-05 10:36] VITALS: BMI 20.1
[2021-05-10] MEDS ORDERED: SUCCINYLCHOLINE CHLORIDE 200 MG/10 ML SYRINGE ONE (07:16)
[2021-05-10] MEDS ORDERED: PROPOFOL 20 ML ONE (07:38)
[2021-05-10] MEDS ORDERED: ceFAZolin SODIUM 1 GM VIAL IVPB ONE (07:56)
[2021-05-10] MEDS ORDERED: GENTAMICIN 80MG PREMIX BAG IVPB ONE (07:57)
[2021-05-10] MEDS ORDERED: KETOROLAC TROMETHAMINE 30 MG/1 ML VIAL ONE (08:09)
[2021-05-10] MEDS ORDERED: GENTAMICIN SO4 80 MG/2 ML VIAL ONE (08:09)
[2021-05-10] MEDS ORDERED: ceFAZolin SODIUM 1 GM VIAL ONE (08:09)
[2021-05-10] MEDS ORDERED: DEXAMETHASONE SOD PHOSPHATE 4 MG/1 ML VIAL ONE (08:09)
[2021-05-10] MEDS ORDERED: oxyCODONE HCL 5 MG TABLET PO PRN ×2 (08:28→08:31)
[2021-05-10] MEDS ORDERED: DEXTROSE 5%-0.45% SALINE 1,000 ML IV SCH (08:30)
[2021-05-10] MEDS ORDERED: PROMETHAZINE HCL 25 MG/1 ML VIAL IVPB PRN (08:31)
[2021-05-10] MEDS ORDERED: ONDANSETRON 4 MG/2 ML VIAL IVPUSH PRN (08:31)
[2021-05-10 12:38] VITALS: BP 120/50; PULSE 55; TEMP 97.5
== END 2021-05-10 12:15 | disposition home or self-care (01) ==
LOC: JASU-SURG 04:15
PROVIDERS: ATTEND Urology
PROC: 0TCB8ZZ Extirpation of Matter from Bladder, Via Natural or Artificial Opening Endoscopic (ICD-10-PCS; principal; 2021-05-10 07:30)
DX: N21.0 Calculus in bladder (principal); I10 Essential (primary) hypertension; E11.9 Type 2 diabetes mellitus without complications
CPT/HCPCS: 36415; 82360; 82962; 88300-TC; 94760

== ENCOUNTER 2022-08-15 04:20 | Day surgery (SDC) | payer OTHER, MEDICARE ==
[2022-08-10 16:40] VITALS: BMI 21.8
[2022-08-15 07:08] VITALS: RESP 20
[2022-08-15] MEDS ORDERED: LIDOCAINE HCL 1%, 10 MG/ML (20ML VIAL) INF ONE ×2 (07:35→10:35)
[2022-08-15] MEDS ORDERED: ONDANSETRON 4 MG/2 ML VIAL IVPUSH PRN (08:39)
[2022-08-15] MEDS ORDERED: oxyCODONE HCL 5 MG TABLET PO PRN (08:39)
[2022-08-15] MEDS ORDERED: ACETAMINOPHEN 325 MG TABLET (FP) PO PRN (08:39)
[2022-08-15] MEDS ORDERED: ACETAMINOPHEN INJECTION 100 ML IVPB ONE (08:42)
[2022-08-15] MEDS ORDERED: DEXMEDETOMIDINE HCL 200 MCG/2 ML IVPB ONE (08:42)
[2022-08-15] MEDS ORDERED: PROPOFOL 40 ML ONE (08:44)
[2022-08-15] MEDS ORDERED: LACTATED RINGERS SOLUTION 1,000 ML IV SCH (08:45)
[2022-08-15] MEDS ORDERED: ceFAZolin SODIUM 1 GM VIAL ONE (09:58)
[2022-08-15] MEDS ORDERED: PROPOFOL 20 ML ONE (09:59)
[2022-08-15] MEDS ORDERED: ceFAZolin 2 GRAM PREMIX BAG IVPB ONE (10:00)
[2022-08-15] MEDS ORDERED: ONDANSETRON 4 MG/2 ML VIAL ONE (10:17)
[2022-08-15 12:31] VITALS: BP 135/56; PULSE 62; TEMP 98.7
== END 2022-08-15 12:47 | disposition home or self-care (01) ==
LOC: JASU-SURG 04:20
PROVIDERS: ATTEND Surgery
PROC: 0HBU0ZX Excision of Left Breast, Open Approach, Diagnostic (ICD-10-PCS; principal; 2022-08-15 09:00)
DX: N60.12 Diffuse cystic mastopathy of left breast (principal)
CPT/HCPCS: 19281; 76098-TC-FY; 82962; 88307-TC

== ENCOUNTER 2023-12-04 11:53 | Emergency (ER) | payer OTHER, MEDICARE ==
[2023-12-04 12:21] VITALS: BMI 21.6
[2023-12-04 13:56] LABS: HEMATOCRIT 37.3 % (32.4-45.2); HEMOGLOBIN 12.7 GM/dL (10.7-15.3); MCHC 33.9 g/dl (32.0-36.0); MEAN CELL VOLUME 106.1 fl (80-96); MEAN PLT VOLUME 6.6 fl (7.5-11.1); PLATELET COUNT 776 10^3/uL (134-434); RBC 3.52 M/mm3 (3.60-5.2); RDW 27.4 % (11.6-15.6); WHITE BLOOD COUNT 5.9 K/mm3 (4.0-10.0)
[2023-12-04 14:13] LABS: CHLORIDE 106 mmol/L (98-107); SODIUM 138 mmol/L (136-145)
[2023-12-04 14:16] LABS: ALBUMIN 3.9 g/dl (3.4-5.0); ANISOCYTOSIS 2+; CALCIUM 9.7 mg/dL (8.5-10.1); GLUCOSE,RANDOM 151 mg/dL (74-106); MACROCYTOSIS 2+; MAGNESIUM 2.7 mg/dL (1.8-2.4)
[2023-12-04 14:17] LABS: BLOOD UREA NITROGEN 31.2 mg/dL (7-18)
[2023-12-04 14:19] LABS: PHOSPHOROUS 4.6 mg/dL (2.5-4.9); SGPT/ALT 23 U/L (13-61)
[2023-12-04 14:20] LABS: CREATININE 1.4 mg/dL (0.55-1.3); SGOT/AST 57 U/L (15-37)
[2023-12-04 14:21] LABS: BILIRUBIN,TOTAL 0.5 mg/dL (0.2-1); TOT PROT 7.7 g/dl (6.4-8.2)
[2023-12-04 14:22] LABS: ALK PHOS 74 U/L (45-117)
[2023-12-04 14:33] LABS: ANION GAP 6 mmol/L (4-13); CO2 27 mmol/L (21-32); POTASSIUM 6.1 mmol/L (3.5-5.1)
[2023-12-04] MEDS: SODIUM CHLORIDE 0.9% 500 ML INFUS.BAG IV ONE (14:45)
[2023-12-04 15:44] LABS: POTASSIUM 4.8 mmol/L (3.5-5.1)
[2023-12-04 15:45] LABS: CALCIUM 10.1 mg/dL (8.5-10.1)
[2023-12-04 15:46] LABS: BLOOD UREA NITROGEN 31.4 mg/dL (7-18)
[2023-12-04 15:49] LABS: CREATININE 1.2 mg/dL (0.55-1.3)
[2023-12-04 17:42] VITALS: BP 122/78; PULSE 72; RESP 19; TEMP 97.9
== END 2023-12-04 17:47 | disposition home or self-care (01) ==
LOC: JER 11:53
DX: R79.9 Abnormal finding of blood chemistry, unspecified (principal); E86.0 Dehydration; J04.0 Acute laryngitis; Z20.822 Contact with and (suspected) exposure to COVID-19
CPT/HCPCS: 0241U-QW; 36415; 80048; 80053; 83735; 84100; 85025; 99283-25